=== PATIENT | male | born 1940 | race Caucasian/White ===

== ENCOUNTER 2025-02-20 10:44 | Inpatient (IN) ==
[2025-02-20] MEDS: MoRPHine SULFATE 4 MG/ML 1 ML CARP\\VIAL IV STA (12:06)
[2025-02-20] MEDS: KETOROLAC TROMETHAMINE 15 MG/ML VIAL IV STA (12:06)
[2025-02-20] MEDS: SODIUM CHLORIDE 0.9% 500 ML IV SCH (12:09)
[2025-02-20] MEDS: ACETAMINOPHEN 1,000 MG/100 ML VIAL IV STA (12:11)
[2025-02-20 12:35] LABS: Basophils # (auto) 0.03 K/uL (0.00-0.20); Basophils % (auto) 0.2 %; Eosinophils # (auto) 0.02 K/uL (0.00-0.50); Eosinophils % (auto) 0.1 %; Hematocrit (blood only) 44.4 % (42.0-52.0); Hemoglobin 13.4 g/dl (14.0-18.0); Immature Granulocytes # (auto) 0.06 K/uL (0.01-0.20); Immature Granulocytes % (auto) 0.3 %; Lymphocytes # (auto) 0.34 K/uL (1.20-3.40); Lymphocytes % (auto) 1.9 %; Mean Corpuscular Hemoglobin 26.9 pg (25.0-34.0); Mean Corpuscular Hgb Conc 30.2 g/dL (32.0-36.0); Mean Platelet Volume 11.6 fL (9.4-12.4); Monocytes # (auto) 1.43 K/uL (0.11-0.59); Monocytes % (auto) 8.2 %; Neutrophils # (auto) 15.62 K/uL (1.40-6.50); Neutrophils % (auto) 89.3 %; Platelet Count 332 K/uL (130-400); RDW Coefficient of Variation 14.7 % (11.5-14.5); RDW Standard Deviation 47.8 fL (36.4-46.3); Red Blood Count 4.99 M/uL (4.70-6.10)
[2025-02-20 12:55] LABS: Albumin Level 4.6 gm/dl (3.4-5.0); Bilirubin Direct 0.2 mg/dl (0-0.2); Bilirubin,Total 0.6 mg/dl (0.2-1.0); Calcium 9.9 mg/dl (8.6-10.3); Creatinine Clr Calc Pharmacy 31.3 ml/min; Magnesium 2.1 mg/dl (1.7-2.4); Potassium 4.6 mmol/L (3.5-5.1); Total Protein 7.3 gm/dl (6.0-8.3)
[2025-02-20 12:59] LABS: INR 1.1 (0.9-1.1); Partial Thromboplastin Ratio 1.1; Partial Thromboplastin Time 30 Seconds (21-31); Prothrombin Time 12.1 Seconds (9.0-12.0)
[2025-02-20 13:01] LABS: Troponin I High Sensitivity 26.9 pg/ml (0-20)
--- NOTE | 2025-02-20 13:05 | XRay Report ---
XR chest 1V portable CLINICAL HISTORY: Sepsis COMPARISON STUDY: None FINDINGS: There is mild cardiomegaly without pulmonary vascular congestion. No effusion, consolidatio n, or pneumothorax. IMPRESSION: No acute findings. ACT 112: Negative or not required by law. Electronically signed by: Rick Salas M.D. 02/20/2025 1:04 PM
[2025-02-20 13:08] LABS: Appearance Urine Clear (Clear); Bacteria Urine Automated None Seen (None Seen); Bilirubin Urine Negative (Negative); Blood Urine Negative (Negative); Cast Urine Automated 0-2 /lpf (0-2); Color Urine Yellow; Epithelial Cell Urine Auto 0-2 /hpf (0-2); Glucose Urine UA 2+ (Negative); Ketones Urine Trace (Negative); Leukocyte Esterase Urine Negative (Negative); Nitrite Urine Negative (Negative); Protein Urine Trace (Negative); RBC Urine Automated 0-2 /hpf (0-2); Specific Gravity Urine 1.022 (1.000-1.030); Urobilinogen Urine Negative (Negative); WBC Urine Automated 0-5 /hpf (0-5)
--- NOTE | 2025-02-20 13:09 | XRay Report ---
XR toe(s) RT min 2V CLINICAL HISTORY: R great toe pain COMPARISON: None FINDINGS: There are degenerative changes at the first MTP joint with moderate joint space narrowing and no erosions. There is mild soft tissue calcification medial to the joint. There is a small area o f cortical thinning at the mid medial plantar aspect of the first distal phalanx. No other fracture o r dislocation seen. No radiopaque foreign body. IMPRESSION: 1. Small area of cortical thinning at the first distal phalanx. Differential diagnosis includes osteo myelitis or small fracture. Suggest clinical correlation for trauma history. 2. Degenerative changes at the first MTP joint could represent early gout. ACT 112: Negative or not required by law. Electronically signed by: Rick Salas M.D. 02/20/2025 1:07 PM
[2025-02-20 13:22] LABS: Adenovirus PCR Not Detected (NotDetected); Bordetella parapertussis PCR Not Detected (NotDetected); Bordetella pertussis PCR Not Detected (NotDetected); Chlamydia pneumoniae PCR Not Detected (NotDetected); Coronavirus 229E PCR Not Detected (NotDetected); Coronavirus CoV-2 (COVID19)PCR Not Detected (NotDetected); Coronavirus HKU1 PCR Not Detected (NotDetected); Coronavirus NL63 PCR Not Detected (NotDetected); Coronavirus OC43PCR Not Detected (NotDetected); Human Metapneumovirus PCR Not Detected (NotDetected); Influenza A PCR Not Detected (NotDetected); Influenza B PCR Not Detected (NotDetected); Mycoplasma pneumoniae PCR Not Detected (NotDetected); Parainfluenza Virus 1 PCR Not Detected (NotDetected); Parainfluenza Virus 2 PCR Not Detected (NotDetected); Parainfluenza Virus 3 PCR Not Detected (NotDetected); Parainfluenza Virus 4 PCR Not Detected (NotDetected); Respiratory Syncytial VirusPCR Not Detected (NotDetected); Rhinovirus/Enterovirus PCR Not Detected (NotDetected)
--- NOTE | 2025-02-20 13:22 | CT Scan Report ---
CT lumbar spine wo con CLINICAL HISTORY: back pain fever COMPARISON STUDY: None FINDINGS: There is mild right convex lumbar scoliosis. There is severe diffuse degenerative disc dise ase and lower lumbar facet degeneration. No fracture or subluxation. No evidence of discitis/osteomye litis. There is moderate bilateral neural foraminal narrowing at L3-4 through L5-S1. There is mild ce ntral canal narrowing at L1-2, L2-3, L3-4, and L4-5. IMPRESSION: 1. No evidence of discitis/osteomyelitis seen at the lumbar spine. 2. No lumbar spine fractures seen. Diffuse degenerative changes as described. ACT 112: Negative or not required by law. Electronically signed by: Rick Salas M.D. 02/20/2025 1:20 PM
[2025-02-20] MEDS ORDERED: VANCOMYCIN CONSULT ACTIVE PRN ×2 (13:25→20:56)
[2025-02-20] MEDS: PIPERACILLIN/TAZOBACTAM 4.5 GM/100 ML BAG IV ONE (13:30)
--- NOTE | 2025-02-20 13:33 | CT Scan Report ---
ABDOMEN AND PELVIS CT WITHOUT CONTRAST CT DOSE: 898.94 mGy.cm HISTORY: back pain fever TECHNIQUE: Multiaxial CT images of the abdomen and pelvis were performed without contrast. A dose lo wering technique was utilized adhering to the principles of ALARA. COMPARISON STUDY: None FINDINGS: ABDOMEN: There is moderate splenomegaly measuring 16 cm. Portal vein is mildly prominent. This sugges ts portal hypertension. No ascites seen. There is a small amount of biliary gas. Otherwise the liver, spleen, and adrenal glands have an unremarkable non-IV contrasted appearance. There are likely prior operative changes of proximal pancreatic resection and anastomosis, not well seen without IV and ora l contrast. Pancreatic duct is mildly dilated, common after anastomosis. Otherwise the pancreas has a grossly unremarkable non-IV contrasted appearance. There are multiple bilateral renal cysts measurin g up to 8 cm at the right kidney. Kidneys show no hydronephrosis or calculi bilaterally. There are sc attered atherosclerotic calcifications. No abdominal aortic aneurysm. Pelvis: Prostate is enlarged. Garcia catheter is present and the urinary bladder is empty. There is mo derate retained stool. There is sigmoid diverticulosis. No acute diverticulitis. No bowel inflammatio n or obstruction. No free fluid, free air, or abscess. There are multiple small periaortic and pelvic lymph nodes with no enlarged adenopathy seen. Osseous structures: There is lumbar degenerative disc disease and there are moderate degenerative dorothy nges at the hips. No acute osseous findings. IMPRESSION: 1. No acute findings seen. 2. 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 This explains the small amount of bili vincent gas. 3. Splenomegaly and mild prominence of the pulmonary vein suggest portal hypertension. Cirrhotic morp hology of the liver is not present. No ascites. 4. Otherwise as described. ACT 112: Negative or not required by law. The above report was generated using voice recognition software. It may contain grammatical, syntax o r spelling errors. Electronically signed by: Rick Salas M.D. 02/20/2025 1:31 PM
[2025-02-20 14:06] LABS: HCO3 VBG 23 mmol/L; Oxygen Saturation VBG 74.9 %; PCO2 VBG 45 mmHg (38-50); PO2 VBG 42 mmHg; pH VBG 7.32 (7.36-7.41)
[2025-02-20] MEDS: VANCOMYCIN HCL 1,750 MG in SODIUM CHLORIDE 0.9% 500 ML IV ONE (14:30)
[2025-02-20] MEDS: GADOBUTROL 65ML VIAL IV ONE (15:50)
--- NOTE | 2025-02-20 16:32 | Magnetic Resonance Report ---
MRI foot without contrast History: Foot pain Comparison: None Technique: Multiphasic, multisequence MRI of the right foot performed without contrast Findings: There is an area of skin thickening and edema with mild swelling seen about the distal aspect of the great toe medially. Within the subjacent distal phalanx of the great toe, there is mild high signal intensity edema on the STIR sequences. There is some slight low signal intensity change along the medial margin of the distal aspect of the distal phalanx noted, however which remains significantly higher in signal when compared to that of skeletal muscle. No focal fluid collection identified within the soft tissues. Bone marrow signal in the remainder of the foot appears within normal limits. Impression: Edema and skin thickening, noted about the medial aspect of the distal great toe. Within the subjacent bone, there is edema noted as well, however without sufficiently low T1-weighted signal abnormality to suggest osteomyelitis, and would be more compatible with reactive osteitis. No focal fluid collections or abscess.. Electronically signed by Deshawn Singh 02-20-2025 4:16 PM
--- NOTE | 2025-02-20 16:52 | Emergency Department Note ---
History of Present Illness General Chief complaint: Back Injury/Pain Stated complaint: BACK PAIN Time Seen by Provider: 02/20/25 11:30 History of Present Illness Provider complaint: Back pain Maximum Pain Intensity: 10 84-year-old male presents emergency department for back pain. Patient reports he is having lower bilateral back pain that began last night while he was lying in bed. Patient reports he has a history of chronic back problems and sees doctors in [place] for them. Patient states he is visiting [place] to see his grandson graduate. He reports some difficulty urinating. Patient reports no fevers. No falls or traumas. Patient reports he took prednisone 20 mg last night for his back pain. He reports no abdominal pain. No chest pain or difficulty breathing. Patient is on Eliquis. Home Medications Medication Instructions Recorded Confirmed Type acetaminophen 300 mg-codeine 60 mg 1 tab PO Q12H PRN Pain 02/20/25 02/20/25 History tablet apixaban 5 mg tablet (Eliquis) 5 mg PO BID 02/20/25 02/20/25 History bumetanide 1 mg tablet 1 mg PO Q OTHER DAY 02/20/25 02/20/25 History cholecalciferol (vitamin D3) 25 25 mcg PO DAILY 02/20/25 02/20/25 History mcg (1,000 unit) capsule (Vitamin D3) empagliflozin 10 mg tablet 10 mg PO DAILY 02/20/25 02/20/25 History (Jardiance) finasteride 5 mg tablet 5 mg PO DAILY 02/20/25 02/20/25 History lorazepam 1 mg tablet 1 mg PO Q12H PRN ANXIETY/INSOMNIA 02/20/25 02/20/25 History losartan 100 mg tablet 100 mg PO DAILY 02/20/25 02/20/25 History pantoprazole 40 mg tablet,delayed 40 mg PO DAILYBB 02/20/25 02/20/25 History release propafenone 150 mg tablet 150 mg PO Q12H 02/20/25 02/20/25 History rosuvastatin 10 mg tablet 10 mg PO DAILY 02/20/25 02/20/25 History tamsulosin 0.4 mg capsule 0.8 mg PO HS 02/20/25 02/20/25 History Allergies Allergy/AdvReac Type Severity Reaction Status Date / Time oxycodone AdvReac Intermediate DELIRIUM Verified 02/20/25 16:40 Past Med/Surg History Problem List (Updated 02/20/25 @ 18:39 by Chon Contreras MD) Discitis of lumbar region (Acute) Medical History (Updated 02/20/25 @ 18:39 by Chon Contreras MD) Bladder cancer COPD (chronic obstructive pulmonary disease) Atrial fibrillation Gout Surgical History (Updated 02/20/25 @ 16:44 by Chon Contreras MD) H/O toe surgery Social History Smoking Status: Former smoker Preferred Language: Swedish Feels Safe at Home: Yes Physical Exam Vital Signs Vital Signs - 24 hr 02/20/25 10:47 02/20/25 12:00 02/20/25 12:03 Temperature 37.9 C H Temperature Source Oral Pulse Rate 88 84 Pulse Rate from SpO2 Sensor Respiratory Rate 22 22 Blood Pressure 166/65 H 146/65 H Blood Pressure Mean 98 87 Blood Pressure Position Semi-fowlers Pulse Oximetry 95 Oxygen Delivery Method Room Air Sepsis Recent Fever Within 48 Hours No Sepsis New/Unexplained Change in Mental Status No Sepsis Action Taken by Nursing No Action Required 02/20/25 12:10 02/20/25 12:30 02/20/25 13:00 Temperature Temperature Source Pulse Rate 87 86 95 H Pulse Rate from SpO2 Sensor Respiratory Rate 25 H 22 Blood Pressure Blood Pressure Mean Blood Pressure Position Pulse Oximetry Oxygen Delivery Method Sepsis Recent Fever Within 48 Hours Sepsis New/Unexplained Change in Mental Status Sepsis Action Taken by Nursing 02/20/25 13:33 02/20/25 13:45 02/20/25 14:00 Temperature 37.2 C Temperature Source Oral Pulse Rate 87 85 Pulse Rate from SpO2 Sensor Respiratory Rate 23 23 Blood Pressure 143/70 H Blood Pressure Mean 94 Blood Pressure Position Pulse Oximetry Oxygen Delivery Method Sepsis Recent Fever Within 48 Hours Sepsis New/Unexplained Change in Mental Status Sepsis Action Taken by Nursing 02/20/25 14:39 02/20/25 14:42 02/20/25 16:10 Temperature Temperature Source Pulse Rate 83 79 Pulse Rate from SpO2 Sensor 82 Respiratory Rate 23 Blood Pressure 107/48 L Blood Pressure Mean 74 Blood Pressure Position Pulse Oximetry 91 Oxygen Delivery Method Sepsis Recent Fever Within 48 Hours Sepsis New/Unexplained Change in Mental Status Sepsis Action Taken by Nursing 02/20/25 17:00 Temperature Temperature Source Pulse Rate 77 Pulse Rate from SpO2 Sensor Respiratory Rate 24 Blood Pressure 98/49 L Blood Pressure Mean 63 Blood Pressure Position Pulse Oximetry 94 Oxygen Delivery Method Room Air Sepsis Recent Fever Within 48 Hours Sepsis New/Unexplained Change in Mental Status Sepsis Action Taken by Nursing Physical Exam HENT: Exam performed. - Head: Normocephalic and atraumatic. EYES: Conjunctivae and EOM are normal. Pupils are equal, round, and reactive to light. Right eye exhibits no discharge. Left eye exhibits no discharge. No scleral icterus. NECK: Normal range of motion. Neck supple. No JVD present.No rigidity. No tracheal deviation and normal range of motion present. CV: Normal rate, regular rhythm, normal heart sounds and intact distal pulses. There is no peripheral edema. Palpable radial pulses bue. PULM/CHEST: Effort normal and breath sounds normal. No respiratory distress. No stridor. He has no wheezes. He has no rales. ABD: The abdomen is soft. There is no tenderness. There is no rebound, no guarding. MUSC/SKEL: No C or T-spine tenderness. Pain on palpation of L-spine lower right-sided lumbar and left-sided lumbar paraspinal muscles. Right great toe has a bloodsoaked and purulent bandage on it. Dressing was removed and the patient has sutures that appear clean and dry over the distal phalanx. Palpable DP and PT pulses bilateral lower extremities. NEURO: Motor and sensation grossly intact. Course Course 1130: The patient was evaluated in room C1. A complete history and physical exam was performed Cardiac monitoring: An order was placed for continuous cardiac monitoring. The monitor shows a rate of 90 with sinus rhythm interpreted by me Patient has temperature 37.9 in triage. Sepsis protocols will be initiated. 1300: Patient states he is unable to give a urine sample and urinate. Garcia catheter was placed on the patient. 1340: Patient's white blood cell count is elevated above 17. Lactic acid within normal limits. Procalcitonin is elevated. Patient's creatinine is 1.8 patient does state his creatinine baseline is around 1.8. CT of the abdomen pelvis did not show any acute findings. CT of the lumbar spine does not show any discitis or osteomyelitis. Will obtain MRI of the patient's lumbar spine given his continued back pain, difficulty urinating, white blood cell count and temperature of 37.9. X-ray of the foot shows possible osteomyelitis. In addition to get the MRI of the lumbar spine we will also get MRI of the foot to rule out osteomyelitis. Patient will be treated with broad-spectrum antibiotics for any sort of osteomyelitis giving appearance of his toe. 1755: Vital signs stable. MRI of the foot shows no evidence of osteomyelitis. MRI of this lumbar spine shows discitis. Discussed the case with [facility] hospitalist Dr. Luo who states she will evaluate patient for admission. Patient is agreeable to admission. 1836: Vital signs stable. Spoke with on-call spine surgery DrTarah. He agrees no need for emergent surgical intervention and continue IV antibiotics and plan is proceeded with admission to the hospitalist team. Administered Medications Discontinued Medications Gadobutrol (Gadobutrol 65ml Vial) 8.5 ml IV ONCE ONE Stop: 02/20/25 15:50 Last Admin: 02/20/25 15:50 Dose: 8.5 ml Documented By: PHILIPPE Sodium Chloride (Nss) 500 mls @ 999 mls/hr IV .Q31M GREGG Stop: 02/20/25 12:15 Last Infusion: 02/20/25 13:30 Dose: Infused Documented By: Admin: 02/20/25 12:09 Dose: 999 mls/hr Documented By: CEF Acetaminophen (Ofirmev) 1,000 mg in 100 mls @ 400 mls/hr IV NOW STA Stop: 02/20/25 11:50 Last Infusion: 02/20/25 12:44 Dose: Infused Documented By: Admin: 02/20/25 12:11 Dose: 400 mls/hr Documented By: CEF Piperacillin Sod/Tazobactam Sod (Zosyn) 4.5 gm in 100 mls @ 200 mls/hr IV NOW ONE; Protocol Stop: 02/20/25 13:53 Last Infusion: 02/20/25 14:30 Dose: Infused Documented By: Admin: 02/20/25 13:30 Dose: 200 mls/hr Documented By: CEF Vancomycin HCl 1,750 mg/ (Sodium Chloride) 535 mls @ 200 mls/hr IV NOW ONE Stop: 02/20/25 16:05 Last Infusion: 02/20/25 17:20 Dose: 200 mls/hr Documented By: Infusion: 02/20/25 14:47 Dose: 0 mls/hr Documented By: Admin: 02/20/25 14:30 Dose: 200 mls/hr Documented By: CEF Ketorolac Tromethamine (Ketorolac Tromethamine 15 Mg/Ml Vial) 15 mg IV NOW STA Stop: 02/20/25 11:37 Last Admin: 02/20/25 12:06 Dose: Not Given Documented By: CEF Morphine Sulfate (Morphine Sulfate 4 Mg/Ml 1 Ml Carp\Vial) 4 mg IV NOW STA Stop: 02/20/25 11:45 Last Admin: 02/20/25 12:06 Dose: 4 mg Documented By: CEF Medical Decision Making Laboratory Data Attestation: I reviewed the patient's lab results. 02/20/25 12:17 02/20/25 12:17 Lab Results 02/20/25 02/20/25 02/20/25 Range/Units 12:17 12:54 13:58 WBC 17.50 H (4.8-10.8) K/ul RBC 4.99 (4.70-6.10) M/uL Hgb 13.4 L (14.0-18.0) g/dl Hct 44.4 (42.0-52.0) % MCV 89.0 (80.0-100.0) fL MCH 26.9 (25.0-34.0) pg MCHC 30.2 L (32.0-36.0) g/dL RDW Std Deviation 47.8 H (36.4-46.3) fL RDW Coeff of Ivan 14.7 H (11.5-14.5) % Plt Count 332 (130-400) K/uL MPV 11.6 (9.4-12.4) fL Immature Gran % (Auto) 0.3 % Neut % (Auto) 89.3 % Lymph % (Auto) 1.9 % [place] % (Auto) 8.2 % Eos % (Auto) 0.1 % Baso % (Auto) 0.2 % Neut # (Auto) 15.62 H (1.40-6.50) K/uL Lymph # (Auto) 0.34 L (1.20-3.40) K/uL [place] # (Auto) 1.43 H (0.11-0.59) K/uL Eos # (Auto) 0.02 (0.00-0.50) K/uL Baso # (Auto) 0.03 (0.00-0.20) K/uL Immature Gran # (Auto) 0.06 (0.01-0.20) K/uL PT 12.1 H (9.0-12.0) Seconds INR 1.1 (0.9-1.1) APTT 30 (21-31) Seconds PTT Ratio 1.1 VBG pH 7.32 L (7.36-7.41) VBG pCO2 45 (38-50) mmHg VBG pO2 42 mmHg VBG HCO3 23 mmol/L VBG O2 Saturation 74.9 % VBG Base Excess -3.0 mEq/L Sodium 142 (136-145) mmol/L Potassium 4.6 (3.5-5.1) mmol/L Chloride 109 H (98-107) mmol/L Carbon Dioxide 29 (21-32) mmol/L Anion Gap 4 (3-11) BUN 46 H (6-23) mg/dl Creatinine 1.84 H (0.6-1.4) mg/dl Est Cr Clr Drug Dosing 31.3 ml/min eGFR 35.48 BUN/Creatinine Ratio 25.0 H (10-20) Glucose 110 H (70-99(Fasting)) mg/dl Lactate 1.5 (0.4-2.0) mmol/L Calcium 9.9 (8.6-10.3) mg/dl Magnesium 2.1 (1.7-2.4) mg/dl Total Bilirubin 0.6 (0.2-1.0) mg/dl Direct Bilirubin 0.2 (0-0.2) mg/dl AST 356 H (13-39) U/L ALT 172 H (7-52) U/L Alkaline Phosphatase 94 (34-104) U/L Troponin I High Sens 26.9 H (0-20) pg/ml Total Protein 7.3 (6.0-8.3) gm/dl Albumin 4.6 (3.4-5.0) gm/dl Procalcitonin 2.28 H (0-0.5) ng/ml Urine Color Yellow Urine Appearance Clear (Clear) Urine pH 5.0 (4.5-7.5) Ur Specific [place] 1.022 (1.000-1.030) Urine Protein Trace H (Negative) Urine Glucose (UA) 2+ H (Negative) Urine Ketones Trace H (Negative) Urine Blood Negative (Negative) Urine Nitrite Negative (Negative) Urine Bilirubin Negative (Negative) Urine Urobilinogen Negative (Negative) Ur Leukocyte Esterase Negative (Negative) Urine WBC (Auto) 0-5 (0-5) /hpf Urine RBC (Auto) 0-2 (0-2) /hpf U Hyaline Cast (Auto) 0-2 (0-2) /lpf U Epithel Cells (Auto) 0-2 (0-2) /hpf Urine Bacteria (Auto) None Seen (None Seen) Adenovirus (PCR) Not Detected (NotDetected) B. pertussis DNA (PCR) Not Detected (NotDetected) B.parapertussis DNA PCR Not Detected (NotDetected) C. pneumoniae DNA (PCR) Not Detected (NotDetected) Coronavirus OC43 (PCR) Not Detected (NotDetected) Coronavirus HKU1 (PCR) Not Detected (NotDetected) Coronavirus 229E (PCR) Not Detected (NotDetected) SARS-CoV-2 (PCR) Not Detected (NotDetected) Coronavirus NL63 (PCR) Not Detected (NotDetected) Human Metapneumovir PCR Not Detected (NotDetected) Influenza Type A (PCR) Not Detected (NotDetected) Influenza Type B (PCR) Not Detected (NotDetected) M. pneumoniae (PCR) Not Detected (NotDetected) Parainfluenza 1 (PCR) Not Detected (NotDetected) Parainfluenza 2 (PCR) Not Detected (NotDetected) Parainfluenza 3 (PCR) Not Detected (NotDetected) Parainfluenza 4 (PCR) Not Detected (NotDetected) RSV (PCR) Not Detected (NotDetected) Entero/Rhino (PCR) Not Detected (NotDetected) 02/20/25 Range/Units 14:18 WBC (4.8-10.8) K/ul RBC (4.70-6.10) M/uL Hgb (14.0-18.0) g/dl Hct (42.0-52.0) % MCV (80.0-100.0) fL MCH (25.0-34.0) pg MCHC (32.0-36.0) g/dL RDW Std Deviation (36.4-46.3) fL RDW Coeff of Ivan (11.5-14.5) % Plt Count (130-400) K/uL MPV (9.4-12.4) fL Immature Gran % (Auto) % Neut % (Auto) % Lymph % (Auto) % [place] % (Auto) % Eos % (Auto) % Baso % (Auto) % Neut # (Auto) (1.40-6.50) K/uL Lymph # (Auto) (1.20-3.40) K/uL [place] # (Auto) (0.11-0.59) K/uL Eos # (Auto) (0.00-0.50) K/uL Baso # (Auto) (0.00-0.20) K/uL Immature Gran # (Auto) (0.01-0.20) K/uL PT (9.0-12.0) Seconds INR (0.9-1.1) APTT (21-31) Seconds PTT Ratio VBG pH (7.36-7.41) VBG pCO2 (38-50) mmHg VBG pO2 mmHg VBG HCO3 mmol/L VBG O2 Saturation % VBG Base Excess mEq/L Sodium (136-145) mmol/L Potassium (3.5-5.1) mmol/L Chloride (98-107) mmol/L Carbon Dioxide (21-32) mmol/L Anion Gap (3-11) BUN (6-23) mg/dl Creatinine (0.6-1.4) mg/dl Est Cr Clr Drug Dosing ml/min eGFR BUN/Creatinine Ratio (10-20) Glucose (70-99(Fasting)) mg/dl Lactate (0.4-2.0) mmol/L Calcium (8.6-10.3) mg/dl Magnesium (1.7-2.4) mg/dl Total Bilirubin (0.2-1.0) mg/dl Direct Bilirubin (0-0.2) mg/dl AST (13-39) U/L ALT (7-52) U/L Alkaline Phosphatase (34-104) U/L Troponin I High Sens 23.3 H (0-20) pg/ml Total Protein (6.0-8.3) gm/dl Albumin (3.4-5.0) gm/dl Procalcitonin (0-0.5) ng/ml Urine Color Urine Appearance (Clear) Urine pH (4.5-7.5) Ur Specific [place] (1.000-1.030) Urine Protein (Negative) Urine Glucose (UA) (Negative) Urine Ketones (Negative) Urine Blood (Negative) Urine Nitrite (Negative) Urine Bilirubin (Negative) Urine Urobilinogen (Negative) Ur Leukocyte Esterase (Negative) Urine WBC (Auto) (0-5) /hpf Urine RBC (Auto) (0-2) /hpf U Hyaline Cast (Auto) (0-2) /lpf U Epithel Cells (Auto) (0-2) /hpf Urine Bacteria (Auto) (None Seen) Adenovirus (PCR) (NotDetected) B. pertussis DNA (PCR) (NotDetected) B.parapertussis DNA PCR (NotDetected) C. pneumoniae DNA (PCR) (NotDetected) Coronavirus OC43 (PCR) (NotDetected) Coronavirus HKU1 (PCR) (NotDetected) Coronavirus 229E (PCR) (NotDetected) SARS-CoV-2 (PCR) (NotDetected) Coronavirus NL63 (PCR) (NotDetected) Human Metapneumovir PCR (NotDetected) Influenza Type A (PCR) (NotDetected) Influenza Type B (PCR) (NotDetected) M. pneumoniae (PCR) (NotDetected) Parainfluenza 1 (PCR) (NotDetected) Parainfluenza 2 (PCR) (NotDetected) Parainfluenza 3 (PCR) (NotDetected) Parainfluenza 4 (PCR) (NotDetected) RSV (PCR) (NotDetected) Entero/Rhino (PCR) (NotDetected) Imaging Data Radiologist's Impression: Abdomen/Pelvis CT 02/20/25 11:[address] WITHOUT CONTRAST CT DOSE: 898.94 mGy.cm HISTORY: back pain fever TECHNIQUE: Multiaxial CT images of the abdomen and pelvis were performed without contrast. A dose lowering technique was utilized adhering to the principles of ALARA. COMPARISON STUDY: None FINDINGS: ABDOMEN: There is moderate splenomegaly measuring 16 cm. Portal vein is mildly prominent. This suggests portal hypertension. No ascites seen. There is a small amount of biliary gas. Otherwise the liver, spleen, and adrenal glands have an unremarkable non-IV contrasted appearance. There are likely prior operative changes of proximal pancreatic resection and anastomosis, not well seen without IV and oral contrast. Pancreatic duct is mildly dilated, common after anastomosis. Otherwise the pancreas has a grossly unremarkable non-IV contrasted appearance. There are multiple bilateral renal cysts measuring up to 8 cm at the right kidney. Kidneys show no hydronephrosis or calculi bilaterally. There are scattered atherosclerotic calcifications. No abdominal aortic aneurysm. Pelvis: Prostate is enlarged. Garcia catheter is present and the urinary bladder is empty. There is moderate retained stool. There is sigmoid diverticulosis. No acute diverticulitis. No bowel inflammation or obstruction. No free fluid, free air, or abscess. There are multiple small periaortic and pelvic lymph nodes with no enlarged adenopathy seen. Osseous structures: There is lumbar degenerative disc disease and there are moderate degenerative changes at the hips. No acute osseous findings. IMPRESSION: 1. No acute findings seen. 2. 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 This explains the small amount of biliary gas. 3. Splenomegaly and mild prominence of the pulmonary vein suggest portal hypertension. Cirrhotic morphology of the liver is not present. No ascites. 4. Otherwise as described. ACT 112: Negative or not required by law. The above report was generated using voice recognition software. It may contain grammatical, syntax or spelling errors. Electronically signed by: Rick Salas M.D. 02/20/2025 1:31 PM Chest X-Ray 02/20/25 11:36 XR chest 1V portable CLINICAL HISTORY: Sepsis COMPARISON STUDY: None FINDINGS: There is mild cardiomegaly without pulmonary vascular congestion. No effusion, consolidation, or pneumothorax. IMPRESSION: No acute findings. ACT 112: Negative or not required by law. Electronically signed by: Rick Salas M.D. 02/20/2025 1:[address] 02/20/25 11:36 CT lumbar spine wo con CLINICAL HISTORY: back pain fever COMPARISON STUDY: None FINDINGS: There is mild right convex lumbar scoliosis. There is severe diffuse degenerative disc disease and lower lumbar facet degeneration. No fracture or subluxation. No evidence of discitis/osteomyelitis. There is moderate bilateral neural foraminal narrowing at L3-4 through L5-S1. There is mild central canal narrowing at L1-2, L2-3, L3-4, and L4-5. IMPRESSION: 1. No evidence of discitis/osteomyelitis seen at the lumbar spine. 2. No lumbar spine fractures seen. Diffuse degenerative changes as described. ACT 112: Negative or not required by law. Electronically signed by: Rick Salas M.D. 02/20/2025 1:20 PM Toe X-Ray 02/20/25 11:43 XR toe(s) RT min 2V CLINICAL HISTORY: R great toe pain COMPARISON: None FINDINGS: There are degenerative changes at the first MTP joint with moderate joint space narrowing and no erosions. There is mild soft tissue calcification medial to the joint. There is a small area of cortical thinning at the mid medial plantar aspect of the first distal phalanx. No other fracture or dislocation seen. No radiopaque foreign body. IMPRESSION: 1. Small area of cortical thinning at the first distal phalanx. Differential diagnosis includes osteomyelitis or small fracture. Suggest clinical correlation for trauma history. 2. Degenerative changes at the first MTP joint could represent early gout. ACT 112: Negative or not required by law. Electronically signed by: Rick Salas M.D. 02/20/2025 1:07 PM Foot MRI 02/20/25 13:35 MRI foot without contrast History: Foot pain Comparison: None Technique: Multiphasic, multisequence MRI of the right foot performed without contrast Findings: There is an area of skin thickening and edema with mild swelling seen about the distal aspect of the great toe medially. Within the subjacent distal phalanx of the great toe, there is mild high signal intensity edema on the STIR sequences. There is some slight low signal intensity change along the medial margin of the distal aspect of the distal phalanx noted, however which remains significantly higher in signal when compared to that of skeletal muscle. No focal fluid collection identified within the soft tissues. Bone marrow signal in the remainder of the foot appears within normal limits. Impression: Edema and skin thickening, noted about the medial aspect of the distal great toe. Within the subjacent bone, there is edema noted as well, however without sufficiently low T1-weighted signal abnormality to suggest osteomyelitis, and would be more compatible with reactive osteitis. No focal fluid collections or abscess.. Electronically signed by Deshawn Singh 02-20-2025 4:16 PM Lumbar Spine MRI 02/20/25 13:35 EXAM: MR lumbar spine wo/w con CLINICAL HISTORY: fever, back pain, urinary retention TECHNIQUE: An MRI of the lumbar spine was performed without and with the administration of intravenous contrast. . 8.5CC GADAVIST intravenous contras was administered. Sequences obtained include sagittal T1-weighted, T2-weighted, STIR (Short Tau Inversion Recovery), and axial T2-weighted, post-contrast T1 sequences. COMPARISON: No previous studies are available for comparison. FINDINGS: Vertebral Alignment: Normal alignment of the lumbar spine without evidence of fracture or malalignment. Scoliosis is observed, with apex to the right side , a mottling appearance of the lumbar spine suggesting osteoporosis. Vertebral Bodies and Intervertebral Discs: Spondylodegenerative changes noted with decreased disc heights and bright signal on T2WI associated with marginal osteophytosis and multilevel mixed modic changes. Normal vertebral body height, no fracture identified. L4-5 and L5-S1 discs marked loss of their heights, yet show intra-substance high signal on T2WI/STIR with post-contrast enhancement with no intraspinal or paravertebral localized fluid collections, suggesting discitis [id number] analysis: T11-12: An asymmetrical disc osteophyte bulges the largest component, measuring about 4 mm. There is no spinal canal stenosis. No neural foraminal stenosis.Mild ligamentum flavum hypertrophy and facet joint arthropathy. T12-L1: asymmetrical disc osteophyt bulge, the largest component measuring about 4.4 mm. No spinal canal stenosis. No neural foraminal stenosis.Mild ligamentum flavum hypertrophy and facet joint arthropathy. L1-L2: asymmetrical disc osteophyte bulge, the largest component is right paracentral/foriminal, measuring about 5.5 mm. Mild to moderate spinal canal stenosis. Mild to moderate right and mild left neural foraminal stenosis.mild ligamentum flavum hypertrophy and facet joint arthropathy. L2-L3: asymmetrical disc osteophyt bulge, the largest component is right foramina measuring about 5.5 mm. Mild spinal canal stenosis. moderate to marked neural foraminal stenosis.Mild ligamentum flavum hypertrophy and facet joint arthropathy. L3-L4: asymmetrical disc osteophyte bulge, the largest component measures about 4 mm. Mild spinal canal stenosis. moderate to marked neural foraminal stenosis. ligamentum flavum hypertrophy and facet joint arthropathy. L4-L5: asymmetrical disc osteophyt bulge, the largest component is osteophytosis at both foramina, measuring about 4 mm. No spinal canal stenosis. moderate to marked neural foraminal stenosis, no ligamentum flavum hypertrophy, but there is facet joint arthropathy. L5-S1: asymmetrical disc osteophyt bulge, the largest component is osteophytosis at both foramina, measuring about 4.5 mm. No spinal canal stenosis. moderate to marked neural foraminal stenosis, no ligamentum flavum hypertrophy, but there is facet joint arthropathy.. Spinal Cord : Conus medullaris terminates at the L1 level without abnormality. The lower thoracic spinal cord, conus medullaris, and cauda equina nerve roots are unremarkable. Soft Tissues: Bilateral variable-sized large renal cysts; otherwise, Paraspinal soft tissues appear normal without evidence of abnormal signal intensity or mass lesions. IMPRESSION: 1. Scoliotic changes. 2. 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 L4-5 and L5-S1 show features of discitis Electronically signed by Antelmo Sheridan 02-20-2025 5:23 PM ECG Data Attestation: I personally reviewed and interpreted this ECG as follows: Rate (beats per minute): 87 Rhythm: + normal sinus ECG Intervals/blocks: + Normal QRS, + Normal AK and + Normal QT-c ECG ST segments: + Normal ST segments MDM Narrative 1130: The patient was evaluated in room C1. A complete history and physical exam was performed Cardiac monitoring: An order was placed for continuous cardiac monitoring. The monitor shows a rate of 90 with sinus rhythm interpreted by me Patient has temperature 37.9 in triage. Sepsis protocols will be initiated. 1300: Patient states he is unable to give a urine sample and urinate. Garcia catheter was placed on the patient. 1340: Patient's white blood cell count is elevated above 17. Lactic acid within normal limits. Procalcitonin is elevated. Patient's creatinine is 1.8 patient does state his creatinine baseline is around 1.8. CT of the abdomen pelvis did not show any acute findings. CT of the lumbar spine does not show any discitis or osteomyelitis. Will obtain MRI of the patient's lumbar spine given his continued back pain, difficulty urinating, white blood cell count and temperature of 37.9. X-ray of the foot shows possible osteomyelitis. In addition to get the MRI of the lumbar spine we will also get MRI of the foot to rule out osteomyelitis. Patient will be treated with broad-spectrum antibiotics for any sort of osteomyelitis giving appearance of his toe. 1755: Vital signs stable. MRI of the foot shows no evidence of osteomyelitis. MRI of this lumbar spine shows discitis. Discussed the case with [facility] hospitalist Dr. Luo who states she will evaluate patient for admission. Patient is agreeable to admission. 183: Vital signs stable. Spoke with on-call spine surgery DrTarah. He agrees no need for emergent surgical intervention and continue IV antibiotics and plan is proceeded with admission to the hospitalist team. Impression & Plan Discitis of lumbar region Discharge Plan Visit Data Chief Complaint: Back Injury/Pain Stated Complaint: BACK PAIN ED Provider: Chon Contreras Discharge Problem: Discitis of lumbar region Patient Disposition: Admitted As Inpatient Condition: Fair Forms Stand Alone Forms: My [facility] Prescriptions Prescriptions: No Action propafenone 150 mg tablet 150 mg PO Q12H tamsulosin 0.4 mg capsule 0.8 mg PO HS pantoprazole 40 mg tablet,delayed release (DR/EC) 40 mg PO DAILYBB bumetanide 1 mg tablet 1 mg PO Q OTHER DAY acetaminophen-codeine 300-60 mg tablet 1 tab PO Q12H PRN (Reason: Pain) lorazepam 1 mg tablet 1 mg PO Q12H PRN (Reason: ANXIETY/INSOMNIA) losartan 100 mg tablet 100 mg PO DAILY finasteride 5 mg tablet 5 mg PO DAILY cholecalciferol (vitamin D3) [Vitamin D3] 25 mcg (1,000 unit) Capsule 25 mcg PO DAILY rosuvastatin 10 mg tablet 10 mg PO DAILY Eliquis 5 mg tablet 5 mg PO BID Jardiance 10 mg tablet 10 mg PO DAILY Referrals Referrals: RANDI PATRICK [Other]
--- NOTE | 2025-02-20 17:23 | Magnetic Resonance Report ---
EXAM: MR lumbar spine wo/w con CLINICAL HISTORY: fever, back pain, urinary retention TECHNIQUE: An MRI of the lumbar spine was performed without and with the administration of intravenous contrast. . 8.5CC GADAVIST intravenous contras was administered. Sequences obtained include sagittal T1-weighted, T2-weighted, STIR (Short Tau Inversion Recovery), and axial T2-weighted, post-contrast T1 sequences. COMPARISON: No previous studies are available for comparison. FINDINGS: Vertebral Alignment: Normal alignment of the lumbar spine without evidence of fracture or malalignment. Scoliosis is observed, with apex to the right side , a mottling appearance of the lumbar spine suggesting osteoporosis. Vertebral Bodies and Intervertebral Discs: Spondylodegenerative changes noted with decreased disc heights and bright signal on T2WI associated with marginal osteophytosis and multilevel mixed modic changes. Normal vertebral body height, no fracture identified. L4-5 and L5-S1 discs marked loss of their heights, yet show intra-substance high signal on T2WI/STIR with post-contrast enhancement with no intraspinal or paravertebral localized fluid collections, suggesting discitis [id number] analysis: T11-12: An asymmetrical disc osteophyte bulges the largest component, measuring about 4 mm. There is no spinal canal stenosis. No neural foraminal stenosis.Mild ligamentum flavum hypertrophy and facet joint arthropathy. T12-L1: asymmetrical disc osteophyt bulge, the largest component measuring about 4.4 mm. No spinal canal stenosis. No neural foraminal stenosis.Mild ligamentum flavum hypertrophy and facet joint arthropathy. L1-L2: asymmetrical disc osteophyte bulge, the largest component is right paracentral/foriminal, measuring about 5.5 mm. Mild to moderate spinal canal stenosis. Mild to moderate right and mild left neural foraminal stenosis.mild ligamentum flavum hypertrophy and facet joint arthropathy. L2-L3: asymmetrical disc osteophyt bulge, the largest component is right foramina measuring about 5.5 mm. Mild spinal canal stenosis. moderate to marked neural foraminal stenosis.Mild ligamentum flavum hypertrophy and facet joint arthropathy. L3-L4: asymmetrical disc osteophyte bulge, the largest component measures about 4 mm. Mild spinal canal stenosis. moderate to marked neural foraminal stenosis. ligamentum flavum hypertrophy and facet joint arthropathy. L4-L5: asymmetrical disc osteophyt bulge, the largest component is osteophytosis at both foramina, measuring about 4 mm. No spinal canal stenosis. moderate to marked neural foraminal stenosis, no ligamentum flavum hypertrophy, but there is facet joint arthropathy. L5-S1: asymmetrical disc osteophyt bulge, the largest component is osteophytosis at both foramina, measuring about 4.5 mm. No spinal canal stenosis. moderate to marked neural foraminal stenosis, no ligamentum flavum hypertrophy, but there is facet joint arthropathy.. Spinal Cord : Conus medullaris terminates at the L1 level without abnormality. The lower thoracic spinal cord, conus medullaris, and cauda equina nerve roots are unremarkable. Soft Tissues: Bilateral variable-sized large renal cysts; otherwise, Paraspinal soft tissues appear normal without evidence of abnormal signal intensity or mass lesions. IMPRESSION: 1. Scoliotic changes. 2. 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 L4-5 and L5-S1 show features of discitis Electronically signed by Antelmo Sheridan 02-20-2025 5:23 PM
--- NOTE | 2025-02-20 19:14 | History & Physical Report ---
Date of Service February 20, 2025 Assessment & Plan (1) Discitis of lumbar region: (2) BPH (benign prostatic hyperplasia): (3) Bladder cancer: (4) COPD (chronic obstructive pulmonary disease): (5) Congestive heart failure: Plan 84-year-old male, from out of town, visiting for his son's graduation, presented with low back pain. Was found to have fever, leukocytosis and MRI shows discitis. 1. Discitis Patient was started on vancomycin and Zosyn. Continue Blood cultures ordered Monitor leukocytosis Monitor vital signs Hemodynamically stable 2. Atrial fibrillation Continue Eliquis Not on any rate controlling agents Rate controlled currently 3. Urinary retention Patient has a history of BPH Garcia catheter in place Continue Flomax and Proscar Voiding trial soon to remove catheter Patient has a history of bladder cancer and has had surgeries. Currently CT abdomen was negative 4. Recent toe surgery MRI of the toe did not show any osteomyelitis. It showed osteitis from recent surgery 5. COPD Patient says that he chews tobacco and used to smoke in the past He uses inhalers No hypoxia or acute exacerbation at this time 6. Hyperlipidemia Statin can be resumed 7. Congestive heart failure Patient has a history of congestive heart failure and takes Jardiance He does not take Bumex any longer Appears euvolemic at this time 8. CKD stage III Patient says that his creatinine is at baseline Full code DVT prophylaxis: Continue Eliquis History of Present Illness Chief Complaint: Low back pain Primary Care Provider: RANDI PATRICK This is an 84-year-old male with a history of atrial fibrillation on Eliquis, COPD, history of bladder cancer, recent toe surgery less than 2 weeks ago, BPH, hyperlipidemia, GERD, congestive heart failure, CKD stage III, lives in [place], came to [place] for her son's graduation, presented with low back pain. The patient stated that he has had issues with low back pain off-and-on but it got much worse early this morning. He took a dose of 20 mg of prednisone. He went to the graduation and his pain gradually got worse to the point that he called the ambulance to bring him to the emergency room. While in the ER, he was having difficulty urinating and now has a Garcia catheter in place. In the ER, he was noted to have an elevated temperature of 37.9 and an elevated white count of 17,000. He had several imaging done including right toe x-ray, lumbar spine MRI, foot MRI, lumbar spine CT, chest x-ray. Osteomyelitis of the foot was ruled out but the MRI of the back showed discitis. He has been started on vancomycin and Zosyn. The patient tells me that he does not have any pain in his back at this time. Allergies Allergy/AdvReac Type Severity Reaction Status Date / Time oxycodone AdvReac Intermediate DELIRIUM Verified 02/20/25 16:40 Home Medications Medication Instructions Recorded Confirmed Type acetaminophen 300 mg-codeine 60 mg 1 tab PO Q12H PRN Pain 02/20/25 02/20/25 History tablet apixaban 5 mg tablet (Eliquis) 5 mg PO BID 02/20/25 02/20/25 History bumetanide 1 mg tablet 1 mg PO Q OTHER DAY 02/20/25 02/20/25 History cholecalciferol (vitamin D3) 25 25 mcg PO DAILY 02/20/25 02/20/25 History mcg (1,000 unit) capsule (Vitamin D3) empagliflozin 10 mg tablet 10 mg PO DAILY 02/20/25 02/20/25 History (Jardiance) finasteride 5 mg tablet 5 mg PO DAILY 02/20/25 02/20/25 History lorazepam 1 mg tablet 1 mg PO Q12H PRN ANXIETY/INSOMNIA 02/20/25 02/20/25 History losartan 100 mg tablet 100 mg PO DAILY 02/20/25 02/20/25 History pantoprazole 40 mg tablet,delayed 40 mg PO DAILYBB 02/20/25 02/20/25 History release propafenone 150 mg tablet 150 mg PO Q12H 02/20/25 02/20/25 History rosuvastatin 10 mg tablet 10 mg PO DAILY 02/20/25 02/20/25 History tamsulosin 0.4 mg capsule 0.8 mg PO HS 02/20/25 02/20/25 History Past Med/Surg History Problem List (Updated 02/20/25 @ 19:08 by Corey Bautista MD) Congestive heart failure BPH (benign prostatic hyperplasia) Discitis of lumbar region (Acute) Medical History Bladder cancer COPD (chronic obstructive pulmonary disease) Atrial fibrillation Gout Surgical History H/O toe surgery Social History Smoking Status: Former smoker Preferred Language: [place] Feels Safe at Home: Yes Review of Systems Review of Systems: All systems reviewed & are unremarkable except as noted in Subjective Physical Exam Physical Exam: General appearance: Awake, conversant, able to answer questions appropriately. AOx3. Dry mucous membranes Pupils: Equally reactive to light and accommodation Neck: No masses, no thyromegaly Respiration: Clear to auscultation bilaterally. Normal effort Cardiovascular: S1-S2/regular rate and rhythm. No murmur, rubs or gallop. No edema. Abdomen: Soft, nontender, nondistended. No hepatosplenomegaly Musculoskeletal: No clubbing, no cyanosis, normal range of motion. No point tenderness in the back. Postsurgical changes in the right great toe, incision site appears to be healing. Skin: No rashes, no nodules Neuro exam: Cranial nerves intact, sensation grossly intact Psychiatric: Patient has good judgment and insight. AOx3. Mood and affect appear normal Lymphatics: No cervical or axillary lymphadenopathy noted Results & Data Results & Data Vital Signs (Past 12 Hours) Vital Signs Temp Pulse Resp BP Pulse Ox O2 Del Method 02/20/25 18:00 61 16 99/65 L 94 Room Air 02/20/25 17:00 77 24 98/49 L 94 Room Air 02/20/25 16:10 79 02/20/25 14:42 107/48 L 02/20/25 14:39 83 23 91 02/20/25 14:00 85 23 143/70 H 02/20/25 13:45 87 23 02/20/25 13:33 37.2 C 02/20/25 13:00 95 H 22 02/20/25 12:30 86 25 H 02/20/25 12:10 87 02/20/25 12:03 84 22 02/20/25 12:00 146/65 H 02/20/25 10:47 37.9 C H 88 22 166/65 H 95 Room Air Laboratory Results Abnormal lab results 02/20/25 02/20/25 02/20/25 Range/Units 12:17 12:54 13:58 WBC 17.50 H (4.8-10.8) K/ul Hgb 13.4 L (14.0-18.0) g/dl MCHC 30.2 L (32.0-36.0) g/dL RDW Std Deviation 47.8 H (36.4-46.3) fL RDW Coeff of Ivan 14.7 H (11.5-14.5) % Neut # (Auto) 15.62 H (1.40-6.50) K/uL Lymph # (Auto) 0.34 L (1.20-3.40) K/uL [place] # (Auto) 1.43 H (0.11-0.59) K/uL PT 12.1 H (9.0-12.0) Seconds VBG pH 7.32 L (7.36-7.41) Chloride 109 H (98-107) mmol/L BUN 46 H (6-23) mg/dl Creatinine 1.84 H (0.6-1.4) mg/dl BUN/Creatinine Ratio 25.0 H (10-20) Glucose 110 H (70-99(Fasting)) mg/dl AST 356 H (13-39) U/L ALT 172 H (7-52) U/L Troponin I High Sens 26.9 H (0-20) pg/ml Procalcitonin 2.28 H (0-0.5) ng/ml Urine Protein Trace H (Negative) Urine Glucose (UA) 2+ H (Negative) Urine Ketones Trace H (Negative) 02/20/25 Range/Units 14:18 WBC (4.8-10.8) K/ul Hgb (14.0-18.0) g/dl MCHC (32.0-36.0) g/dL RDW Std Deviation (36.4-46.3) fL RDW Coeff of Ivan (11.5-14.5) % Neut # (Auto) (1.40-6.50) K/uL Lymph # (Auto) (1.20-3.40) K/uL [place] # (Auto) (0.11-0.59) K/uL PT (9.0-12.0) Seconds VBG pH (7.36-7.41) Chloride (98-107) mmol/L BUN (6-23) mg/dl Creatinine (0.6-1.4) mg/dl BUN/Creatinine Ratio (10-20) Glucose (70-99(Fasting)) mg/dl AST (13-39) U/L ALT (7-52) U/L Troponin I High Sens 23.3 H (0-20) pg/ml Procalcitonin (0-0.5) ng/ml Urine Protein (Negative) Urine Glucose (UA) (Negative) Urine Ketones (Negative) Diagnostic Findings Abdomen/Pelvis CT 02/20/25 11:[address] WITHOUT CONTRAST CT DOSE: 898.94 mGy.cm HISTORY: back pain fever TECHNIQUE: Multiaxial CT images of the abdomen and pelvis were performed without contrast. A dose lowering technique was utilized adhering to the principles of ALARA. COMPARISON STUDY: None FINDINGS: ABDOMEN: There is moderate splenomegaly measuring 16 cm. Portal vein is mildly prominent. This suggests portal hypertension. No ascites seen. There is a small amount of biliary gas. Otherwise the liver, spleen, and adrenal glands have an unremarkable non-IV contrasted appearance. There are likely prior operative changes of proximal pancreatic resection and anastomosis, not well seen without IV and oral contrast. Pancreatic duct is mildly dilated, common after anastomosis. Otherwise the pancreas has a grossly unremarkable non-IV contrasted appearance. There are multiple bilateral renal cysts measuring up to 8 cm at the right kidney. Kidneys show no hydronephrosis or calculi bilaterally. There are scattered atherosclerotic calcifications. No abdominal aortic aneurysm. Pelvis: Prostate is enlarged. Garcia catheter is present and the urinary bladder is empty. There is moderate retained stool. There is sigmoid diverticulosis. No acute diverticulitis. No bowel inflammation or obstruction. No free fluid, free air, or abscess. There are multiple small periaortic and pelvic lymph nodes with no enlarged adenopathy seen. Osseous structures: There is lumbar degenerative disc disease and there are moderate degenerative changes at the hips. No acute osseous findings. IMPRESSION: 1. No acute findings seen. 2. 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 This explains the small amount of biliary gas. 3. Splenomegaly and mild prominence of the pulmonary vein suggest portal hypertension. Cirrhotic morphology of the liver is not present. No ascites. 4. Otherwise as described. ACT 112: Negative or not required by law. The above report was generated using voice recognition software. It may contain grammatical, syntax or spelling errors. Electronically signed by: Rick Salas M.D. 02/20/2025 1:31 PM Chest X-Ray 02/20/25 11:36 XR chest 1V portable CLINICAL HISTORY: Sepsis COMPARISON STUDY: None FINDINGS: There is mild cardiomegaly without pulmonary vascular congestion. No effusion, consolidation, or pneumothorax. IMPRESSION: No acute findings. ACT 112: Negative or not required by law. Electronically signed by: Rick Salas M.D. 02/20/2025 1:[address] 02/20/25 11:36 CT lumbar spine wo con CLINICAL HISTORY: back pain fever COMPARISON STUDY: None FINDINGS: There is mild right convex lumbar scoliosis. There is severe diffuse degenerative disc disease and lower lumbar facet degeneration. No fracture or subluxation. No evidence of discitis/osteomyelitis. There is moderate bilateral neural foraminal narrowing at L3-4 through L5-S1. There is mild central canal narrowing at L1-2, L2-3, L3-4, and L4-5. IMPRESSION: 1. No evidence of discitis/osteomyelitis seen at the lumbar spine. 2. No lumbar spine fractures seen. Diffuse degenerative changes as described. ACT 112: Negative or not required by law. Electronically signed by: Rick Salas M.D. 02/20/2025 1:20 PM Toe X-Ray 02/20/25 11:43 XR toe(s) RT min 2V CLINICAL HISTORY: R great toe pain COMPARISON: None FINDINGS: There are degenerative changes at the first MTP joint with moderate joint space narrowing and no erosions. There is mild soft tissue calcification medial to the joint. There is a small area of cortical thinning at the mid medial plantar aspect of the first distal phalanx. No other fracture or dislocation seen. No radiopaque foreign body. IMPRESSION: 1. Small area of cortical thinning at the first distal phalanx. Differential diagnosis includes osteomyelitis or small fracture. Suggest clinical correlation for trauma history. 2. Degenerative changes at the first MTP joint could represent early gout. ACT 112: Negative or not required by law. Electronically signed by: Rick Salas M.D. 02/20/2025 1:07 PM Foot MRI 02/20/25 13:35 MRI foot without contrast History: Foot pain Comparison: None Technique: Multiphasic, multisequence MRI of the right foot performed without contrast Findings: There is an area of skin thickening and edema with mild swelling seen about the distal aspect of the great toe medially. Within the subjacent distal phalanx of the great toe, there is mild high signal intensity edema on the STIR sequences. There is some slight low signal intensity change along the medial margin of the distal aspect of the distal phalanx noted, however which remains significantly higher in signal when compared to that of skeletal muscle. No focal fluid collection identified within the soft tissues. Bone marrow signal in the remainder of the foot appears within normal limits. Impression: Edema and skin thickening, noted about the medial aspect of the distal great toe. Within the subjacent bone, there is edema noted as well, however without sufficiently low T1-weighted signal abnormality to suggest osteomyelitis, and would be more compatible with reactive osteitis. No focal fluid collections or abscess.. Electronically signed by Deshawn Singh 02-20-2025 4:16 PM Lumbar Spine MRI 02/20/25 13:35 EXAM: MR lumbar spine wo/w con CLINICAL HISTORY: fever, back pain, urinary retention TECHNIQUE: An MRI of the lumbar spine was performed without and with the administration of intravenous contrast. . 8.5CC GADAVIST intravenous contras was administered. Sequences obtained include sagittal T1-weighted, T2-weighted, STIR (Short Tau Inversion Recovery), and axial T2-weighted, post-contrast T1 sequences. COMPARISON: No previous studies are available for comparison. FINDINGS: Vertebral Alignment: Normal alignment of the lumbar spine without evidence of fracture or malalignment. Scoliosis is observed, with apex to the right side , a mottling appearance of the lumbar spine suggesting osteoporosis. Vertebral Bodies and Intervertebral Discs: Spondylodegenerative changes noted with decreased disc heights and bright signal on T2WI associated with marginal osteophytosis and multilevel mixed modic changes. Normal vertebral body height, no fracture identified. L4-5 and L5-S1 discs marked loss of their heights, yet show intra-substance high signal on T2WI/STIR with post-contrast enhancement with no intraspinal or paravertebral localized fluid collections, suggesting discitis [id number] analysis: T11-12: An asymmetrical disc osteophyte bulges the largest component, measuring about 4 mm. There is no spinal canal stenosis. No neural foraminal stenosis.Mild ligamentum flavum hypertrophy and facet joint arthropathy. T12-L1: asymmetrical disc osteophyt bulge, the largest component measuring about 4.4 mm. No spinal canal stenosis. No neural foraminal stenosis.Mild ligamentum flavum hypertrophy and facet joint arthropathy. L1-L2: asymmetrical disc osteophyte bulge, the largest component is right paracentral/foriminal, measuring about 5.5 mm. Mild to moderate spinal canal stenosis. Mild to moderate right and mild left neural foraminal stenosis.mild ligamentum flavum hypertrophy and facet joint arthropathy. L2-L3: asymmetrical disc osteophyt bulge, the largest component is right foramina measuring about 5.5 mm. Mild spinal canal stenosis. moderate to marked neural foraminal stenosis.Mild ligamentum flavum hypertrophy and facet joint arthropathy. L3-L4: asymmetrical disc osteophyte bulge, the largest component measures about 4 mm. Mild spinal canal stenosis. moderate to marked neural foraminal stenosis. ligamentum flavum hypertrophy and facet joint arthropathy. L4-L5: asymmetrical disc osteophyt bulge, the largest component is osteophytosis at both foramina, measuring about 4 mm. No spinal canal stenosis. moderate to marked neural foraminal stenosis, no ligamentum flavum hypertrophy, but there is facet joint arthropathy. L5-S1: asymmetrical disc osteophyt bulge, the largest component is osteophytosis at both foramina, measuring about 4.5 mm. No spinal canal stenosis. moderate to marked neural foraminal stenosis, no ligamentum flavum hypertrophy, but there is facet joint arthropathy.. Spinal Cord : Conus medullaris terminates at the L1 level without abnormality. The lower thoracic spinal cord, conus medullaris, and cauda equina nerve roots are unremarkable. Soft Tissues: Bilateral variable-sized large renal cysts; otherwise, Paraspinal soft tissues appear normal without evidence of abnormal signal intensity or mass lesions. IMPRESSION: 1. Scoliotic changes. 2. 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 L4-5 and L5-S1 show features of discitis Electronically signed by Antelmo Sheridan 02-20-2025 5:23 PM PG Care Time/CCT Total # of Minutes Spent Total Time Spent with Patient: Total time spent is greater than 50% in coordination of care (as documented) at patient's floor/unit and/or counseling patient: Coding Level of Care Code 49348 INT INP/OBS CARE Diagnoses Discitis of lumbar region M46.46 BPH (benign prostatic hyperplasia) N40.0 Bladder cancer C67.9 COPD (chronic obstructive pulmonary disease) J44.9 Congestive heart failure I50.9
[2025-02-20] MEDS ORDERED: POLYETHYLENE (MIRALAX) 17 GM PACK PO PRN (20:56)
[2025-02-20] MEDS ORDERED: MELATONIN 3 MG TAB PO PRN (20:56)
[2025-02-20] MEDS ORDERED: ONDANSETRON INJ 2 MG/ML 2 ML VIAL IV PRN (20:56)
[2025-02-20] MEDS: TAMSULOSIN HCL 0.4 MG CAP PO SCH (21:58)
[2025-02-20] MEDS: PROPAFENONE HCL 150 MG TABLET PO SCH (21:58)
[2025-02-20] MEDS: APIXABAN 5 MG TABLET PO SCH (21:59)
[2025-02-20] MEDS: LORazepam 1 MG TAB PO SCH (22:17)
[2025-02-20] MEDS: VANCOMYCIN HCL 1,000 MG in SODIUM CHLORIDE 0.9% 250 ML IV SCH (22:17)
[2025-02-20] MEDS: ACETAMINOPHEN W/CODEINE #3 1 TAB PO PRN (22:58)
[2025-02-20 23:38] LABS: A calco-baum cmplx NotReported Not Detected (NotDetected); Bact fragilis Not Reported Not Detected (NotDetected); Blood Culture Id Panel See PCR Comment (NotDetected); C auris Not Reported Not Detected (NotDetected); CTX-M Resistant Gene Not Detected (NotDetected); Calbicans Not Reported Not Detected (NotDetected); Candida glabrata Not Reported Not Detected (NotDetected); Candida krusei Not Reported Not Detected (NotDetected); Cneoformans/gatti Not Reported Not Detected (NotDetected); Cparapsilosis Not Reported Not Detected (NotDetected); Ctropicalis Not Reported Not Detected (NotDetected); E cloacae compx Not Reported Not Detected (NotDetected); Efaecalis Not Reported Not Detected (NotDetected); Efaecium Not Reported Not Detected (NotDetected); Enterobacterales DETECTED (NotDetected); Enterobacterales Not Reported DETECTED (NotDetected); Escherichia coli Not Reported DETECTED (NotDetected); H influenzae Not Reported Not Detected (NotDetected); IMP Resistant Gene Not Detected (NotDetected); K aerogenes Not Reported Not Detected (NotDetected); KPC Resistant Gene Not Detected (NotDetected); Koxytoca Not Reported Not Detected (NotDetected); Kpneumoniae grp Not Reported Not Detected (NotDetected); Lmonocyt Not Reported Not Detected (NotDetected); N meningitidis Not Reported Not Detected (NotDetected); NDM Resistant Gene Not Detected (NotDetected); OXA 48 Like Resistant Gene Not Detected (NotDetected); P aeruginosa Not Reported Not Detected (NotDetected); Proteus spp Not Reported Not Detected (NotDetected); Salmonella spp Not Reported Not Detected (NotDetected); Staph lugdunensis Not Reported Not Detected (NotDetected); Staph spp. Not Reported Not Detected (NotDetected); Staphaureus Not Reported Not Detected (NotDetected); Staphepi Not Reported Not Detected (NotDetected); Stenmaltophilia Not Reported Not Detected (NotDetected); Strep agal(GrpB) Not Reported Not Detected (NotDetected); Strep pneum Not Reported Not Detected (NotDetected); Strep pyog (GrpA) Not Reported Not Detected (NotDetected); Strep spp Not Reported Not Detected (NotDetected); VIM Resistant Gene Not Detected (NotDetected); mcr-1 Colistin Resistant Gene Not Detected (NotDetected)
[2025-02-20] MEDS: PIPERACILLIN/TAZOBACTAM 4.5 GM/100 ML BAG IV SCH (23:39)
[2025-02-21] MEDS: ACETAMINOPHEN 325 MG TAB PO PRN (05:17)
[2025-02-21] MEDS: PANTOprazole 40 MG TAB PO SCH (05:19)
[2025-02-21 06:57] LABS: Basophils # (auto) 0.05 K/uL (0.00-0.20); Basophils % (auto) 0.3 %; Eosinophils # (auto) 0.01 K/uL (0.00-0.50); Eosinophils % (auto) 0.1 %; Hematocrit (blood only) 35.4 % (42.0-52.0); Hemoglobin 10.8 g/dl (14.0-18.0); Immature Granulocytes # (auto) 0.12 K/uL (0.01-0.20); Immature Granulocytes % (auto) 0.6 %; Lymphocytes # (auto) 1.48 K/uL (1.20-3.40); Lymphocytes % (auto) 7.4 %; Mean Corpuscular Hemoglobin 26.9 pg (25.0-34.0); Mean Corpuscular Hgb Conc 30.5 g/dL (32.0-36.0); Mean Corpuscular Volume 88.3 fL (80.0-100.0); Monocytes # (auto) 1.84 K/uL (0.11-0.59); Monocytes % (auto) 9.2 %; Neutrophils # (auto) 16.45 K/uL (1.40-6.50); Neutrophils % (auto) 82.4 %; Platelet Count 265 K/uL (130-400); RDW Coefficient of Variation 14.8 % (11.5-14.5); RDW Standard Deviation 47.8 fL (36.4-46.3); Red Blood Count 4.01 M/uL (4.70-6.10); White Blood Count 19.95 K/ul (4.8-10.8)
[2025-02-21] MEDS: FINASTERIDE 5 MG TAB PO SCH (08:05)
[2025-02-21] MEDS: ROSUVASTATIN CALCIUM 10 MG TAB PO SCH (08:05)
--- NOTE | 2025-02-21 11:11 | Infectious Disease Consult ---
Date of Consultation February 21, 2025 Assessment & Plan (1) Discitis of lumbar region: (2) E coli bacteremia: Plan 84yo M, retired physician, with h/o L4-L5 discectomy (no hardware) x 2 over 10yrs ago, right TKA 2021, afib on eliquis, bladder cancer dx 1999 with recurrence s/p TURBT in 04/2024, s/p BCG completed 06/2024, gets cystoscopies for follow up (last 01/2025), IPMN s/p robotic Whipple 2017, recent right first toe ingrown nail nailbed removal and excision of distal phalanx spur on 02/10/25 at [facility], known aortic insufficiency, CHF, COPD, CKD III who presented on 02/20 with acute onset of lower back pain and chills x 1 day. Has chronic bl SI joint pain and gets injections every 6-8mo (last 1yr ago). Took pred 20mg x 1 prior to arrival. In the ER, he had difficulty urinating and brumfield was placed. On admission, he was afebrile, vss. Initial WBC 17.5, Cr 1.84, AST 356, ALT 172. P CT 2.28. UA negative. CTAP w/o con with portal HTN, no cirrhosis. CXR negative. R foot MRI with edema and skin thickening, noted about the medial aspect of the distal great toe; within the subjacent bone, there is edema noted as well, however without sufficiently low T1-weighted signal abnormality to suggest osteomyelitis, and would be more compatible with reactive osteitis; no focal fluid collections or abscess. MRI L spine with L4-5 and L5-S1 w features of discitis. He was started on vanc/zosyn. BCx returned with E coli. ID consulted 02/21. He has E coli bacteremia in setting of MRI findings of discitis. ?whether it may have originated from his right toe given recent surgery (per [facility] records, there werent any concerns for an infection at that time). He also gets injections for SI joint pain, but the last one was quite some time ago. No reported GI or symptoms aside from known urinary retention. Will adjust abx for E coli, pending sensi. He will need a long course of abx, but since he says he doesnt have hardware then will not need suppression. Given his AR and that patient would like to leave, would go ahead and get TTE now rather than waiting to see if bacteremia is persistent. # L4-5 and L5-S1 discitis # E coli bacteremia # H/o L5 discectomy (no hardware) # CKD III (Cr 1.9 in 01/2025) # H/o aortic insufficiency # H/o right TKA - would get TTE - repeat blood cx - ortho spine evaluation - Sherie stopped vancomycin - continue zosyn for now, de-escalate pending BCx sensi - he will need 6 weeks of IV abx for discitis - no PICC until blood cx are neg x 48hrs Will continue to follow. If questions or concerns, contact via [employer] or Infectious Disease Call Center . Clarisse Ruiz MD [facility], Division of Infectious Diseases Consultation Information Consultation was provided via telemedicine using two-way real-time interactive telecommunication between the patient and the telemedicine provider. For the duration of the visit, the provider was performing the assessment from a different facility than the patient. This includesuse of bluetooth stethoscope forauscultationperformed by the telepresenter that the telemedicine provider can hear if described in the physical exam. [employer] contact information: Please call [facility] Call Center [phone]. (Phone Number For Physician Use Only) After establishing a telemedicine visit, patient was: Patient was verified with two unique identifiers, Patient/authorized rep acknowledged consent and understanding and Gave permission to continue telehealth session Time Spent with Patient: Initial => 75 min History of Present Illness Reason for Consultation: Gram neg bacteremia, susp discitis Attending Physician: Dhiraj De Los Santos MD History of Present Illness 84yo M, retired physician, with h/o L4-L5 discectomy (no hardware) x 2 over 10yrs ago, right TKA 2021, afib on eliquis, bladder cancer dx 1999 with recurrence s/p TURBT in 04/2024, s/p BCG completed 06/2024, gets cystoscopies for follow up (last 01/2025), IPMN s/p robotic Whipple 2017, recent right first toe ingrown nail nailbed removal and excision of distal phalanx spur on 02/10/25 at [facility], known aortic insufficiency, CHF, COPD, CKD III who presented on 02/20 with back pain. He lives in [place], was attending his sons graduation in [employer] when he developed low back pain and chills. He took a dose of prednisone 20mg, but pain got worse and ended up calling an ambulance to bring him to the ED. In the ER, he had difficulty urinating and brumfield was placed. On admission, he was afebrile, vss. Initial WBC 17.5, Cr 1.84, AST 356, ALT 172. PCT 2.28. UA negative. CTAP w/o con with portal HTN, no cirrhosis. CXR negative. R foot MRI with edema and skin thickening, noted about the medial aspect of the distal great toe; within the subjacent bone, there is edema noted as well, however without sufficiently low T1-weighted signal abnormality to suggest osteomyelitis, and would be more compatible with reactive osteitis; no focal fluid collections or abscess. MRI L spine with L4-5 and L5-S1 w features of discitis. He was started on vanc/zosyn. BCx returned with E coli. ID consulted 02/21. On evaluation, he says that he has chronic bilateral SI joint pains for the past 8-10 years and often gets injections for the pain, usually every 6-8 months. Last injection was 1yr ago. He has had some of his baseline back pain when it got significantly worse around Sat night/Sun morning along with shaking chills. Denies any issues with his right toe since his surgery. No dysuria, vomiting, diarrhea, other rashes. He says he usually has a 400cc urine residual but doesnt have a brumfield/self-cath at home. Allergies Allergy/AdvReac Type Severity Reaction Status Date / Time oxycodone AdvReac Intermediate DELIRIUM Verified 02/20/25 16:40 Home Medications Medication Instructions Recorded Confirmed Type acetaminophen 300 mg-codeine 60 mg 1 tab PO Q12H PRN Pain 02/20/25 02/20/25 History tablet apixaban 5 mg tablet (Eliquis) 5 mg PO BID 02/20/25 02/20/25 History bumetanide 1 mg tablet 1 mg PO Q OTHER DAY 02/20/25 02/20/25 History cholecalciferol (vitamin D3) 25 25 mcg PO DAILY 02/20/25 02/20/25 History mcg (1,000 unit) capsule (Vitamin D3) empagliflozin 10 mg tablet 10 mg PO DAILY 02/20/25 02/20/25 History (Jardiance) finasteride 5 mg tablet 5 mg PO DAILY 02/20/25 02/20/25 History lorazepam 1 mg tablet 1 mg PO Q12H PRN ANXIETY/INSOMNIA 02/20/25 02/20/25 History losartan 100 mg tablet 100 mg PO DAILY 02/20/25 02/20/25 History pantoprazole 40 mg tablet,delayed 40 mg PO DAILYBB 02/20/25 02/20/25 History release propafenone 150 mg tablet 150 mg PO Q12H 02/20/25 02/20/25 History rosuvastatin 10 mg tablet 10 mg PO DAILY 02/20/25 02/20/25 History tamsulosin 0.4 mg capsule 0.8 mg PO HS 02/20/25 02/20/25 History Patient History Medical History Bladder cancer COPD (chronic obstructive pulmonary disease) Atrial fibrillation Gout Surgical History H/O toe surgery Social History Smoking Status: Former smoker Tobacco Type: Cigarettes Smoking End Date: 2017; Hx Alcohol Use: No Hx Substance Use: No Preferred Language: German Communication Ability: Effective Director Council On Aging Required: No Beliefs That Will Affect Care: None Current Living Situation: Spouse Current Living Situation Comment: at home with Other Information That Helps Us Care for You: No Feels Safe at Home: Yes Safety Concerns: Feels Safe At This Time Assistive Devices: Cane, Glasses and Wheelchair Assistive Devices Comment: wheelchair for long distances Review of System 10-point review of systems reviewed and are negative except for as above. Physical Exam Physical Exam: General: Awake, alert, no acute distress HEENT: NC/AT, EOMI, mmm Neck: supple Lungs: CTA bl, no w/c/r Heart: nl S1/S2, +murmur Abdomen: soft, NT/ND Back: no spinal tenderness Ext: no LE edema, right foot with postop changes Skin: no rash Neuro: moving all extremities Results & Data Vital Signs (Past 12 Hours) Vital Signs Temp Pulse Resp BP Pulse Ox O2 Del Method 02/21/25 07:32 36.4 C L 51 L 16 121/61 93 Room Air Laboratory Results Labs reviewed. Diagnostic Findings Imaging reviewed.
--- NOTE | 2025-02-21 11:18 | Orthopedic Consultation ---
Date of Service February 21, 2025 Assessment & Plan (1) Discitis of lumbar region: Patient feeling better relative to low back pain. L4-5 and L5-S1 discitis is noted on lumbar spine MRI, specifically STIR sequence imaging. He does have significant elevation of WBC count. However, per Dr. Montalvo, no surgical in tervention is recommended at this time. This can be treated medically. We did discuss having him fit with an LSO brace, but the patient says that he would not wear the brace. He is on some IV antibiotics, and plans to stay for another day or so to continue receiving those. Patient says that he really just wants to get out of the hospital and return home, as he lives in [place] and was just visiting to see his grandson graduate from [facility]. Patient does see a radiological health specialist in [place], and so he is recommended to continue to follow-up there. From an orthopedic standpoint, he is safe for discharge once medically stable. He can continue to take recommendations for antibiotics from infectious disease, as he does need to have this discitis treated. Patient seen and examined, I discussed with him that he is had chronic low back pain for a number of years but the MRI findings highly suggest a discitis at L4- 5 and L5-S1. He has some osteophyte formation which I think is stabilizing the levels reducing the amount of pain that he is having from these levels. The patient has agreed to undergo antibiotic treatment, would like to be discharged in 2 days, he will need infectious disease and spine follow-up in [place]. History of Present Illness Reason for Consultation: low back pain Requesting Physician: . Attending Physician: Dhiraj De Los Santos MD ED provider note 02/20/2025: 84-year-old male presents emergency department for back pain. Patient reports he is having lower bilateral back pain that began last night while he was lying in bed. Patient reports he has a history of chronic back problems and sees doctors in [place] for them. Patient states he is visiting [place] to see his grandson graduate. He reports some difficulty urinating. Patient reports no fevers. No falls or traumas. Patient reports he took prednisone 20 mg last night for his back pain. He reports no abdominal pain. No chest pain or difficulty breathing. Patient is on Eliquis. 1130: The patient was evaluated in room C1. A complete history and physical exam was performed Cardiac monitoring: An order was placed for continuous cardiac monitoring. The monitor shows a rate of 90 with sinus rhythm interpreted by me Patient has temperature 37.9 in triage. Sepsis protocols will be initiated. 1300: Patient states he is unable to give a urine sample and urinate. Garcia catheter was placed on the patient. 1340: Patient's white blood cell count is elevated above 17. Lactic acid within normal limits. Procalcitonin is elevated. Patient's creatinine is 1.8 patient does state his creatinine baseline is around 1.8. CT of the abdomen pelvis did not show any acute findings. CT of the lumbar spine does not show any discitis or osteomyelitis. Will obtain MRI of the patient's lumbar spine given his continued back pain, difficulty urinating, white blood cell count and temperature of 37.9. X-ray of the foot shows possible osteomyelitis. In addition to get the MRI of the lumbar spine we will also get MRI of the foot to rule out osteomyelitis. Patient will be treated with broad-spectrum antibiotics for any sort of osteomyelitis giving appearance of his toe. 1755: Vital signs stable. MRI of the foot shows no evidence of osteomyelitis. MRI of this lumbar spine shows discitis. Discussed the case with [facility] hospitalist Dr. Luo who states she will evaluate patient for admission. Patient is agreeable to admission. 1836: Vital signs stable. Spoke with on-call spine surgery . He agrees no need for emergent surgical intervention and continue IV antibiotics and plan is proceeded with admission to the hospitalist team. Hospitalist note 02/20/2025: This is an 84-year-old male with a history of atrial fibrillation on Eliquis, COPD, history of bladder cancer, recent toe surgery less than 2 weeks ago, BPH, hyperlipidemia, GERD, congestive heart failure, CKD stage III, lives in [place], came to [place] for her son's graduation, presented with low back pain. The patient stated that he has had issues with low back pain off-and-on but it got much worse early this morning. He took a dose of 20 mg of prednisone. He went to the graduation and his pain gradually got worse to the point that he called the ambulance to bring him to the emergency room. While in the ER, he was having difficulty urinating and now has a Garcia catheter in place. In the ER, he was noted to have an elevated temperature of 37.9 and an elevated white count of 17,000. He had several imaging done including right toe x-ray, lumbar spine MRI, foot MRI, lumbar spine CT, chest x-ray. Osteomyelitis of the foot was ruled out but the MRI of the back showed discitis. He has been started on vancomycin and Zosyn. --------- Today, the patient notes that he has been feeling better, and that his low back pain is quite a bit improved. 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 He does have a history of an L4-5 discectomy x 2, which was done greater than 10 years ago. He did note that when he was sitting yesterday during his grandsons graduation, he started to note some low back pain and chills developing. He does follow with a radiological health specialist in [place], and so he has some prednisone to take as needed, which he did do, but the pain continued to worsen, which caused him to call an ambulance to transport him to the ED. Patient did undergo a lumbar spine MRI, which was reported to show features of discitis at L4-5 and L5-S1, and so he was started onto IV vancomycin and Zosyn. Infectious disease did report that his blood cultures showed E. coli. Patient has thought for many years that his SI joints were the cause of his pain, and he has gotten injections every 6 to 8 months or so for the past 8 to 10 years. However, he has not had an injection for about a year now. Allergies Allergy/AdvReac Type Severity Reaction Status Date / Time oxycodone AdvReac Intermediate DELIRIUM Verified 02/20/25 16:40 Home Medications Medication Instructions Recorded Confirmed Type acetaminophen 300 mg-codeine 60 mg 1 tab PO Q12H PRN Pain 02/20/25 02/20/25 History tablet apixaban 5 mg tablet (Eliquis) 5 mg PO BID 02/20/25 02/20/25 History bumetanide 1 mg tablet 1 mg PO Q OTHER DAY 02/20/25 02/20/25 History cholecalciferol (vitamin D3) 25 25 mcg PO DAILY 02/20/25 02/20/25 History mcg (1,000 unit) capsule (Vitamin D3) empagliflozin 10 mg tablet 10 mg PO DAILY 02/20/25 02/20/25 History (Jardiance) finasteride 5 mg tablet 5 mg PO DAILY 02/20/25 02/20/25 History lorazepam 1 mg tablet 1 mg PO Q12H PRN ANXIETY/INSOMNIA 02/20/25 02/20/25 History losartan 100 mg tablet 100 mg PO DAILY 02/20/25 02/20/25 History pantoprazole 40 mg tablet,delayed 40 mg PO DAILYBB 02/20/25 02/20/25 History release propafenone 150 mg tablet 150 mg PO Q12H 02/20/25 02/20/25 History rosuvastatin 10 mg tablet 10 mg PO DAILY 02/20/25 02/20/25 History tamsulosin 0.4 mg capsule 0.8 mg PO HS 02/20/25 02/20/25 History Past Med/Surg History Problem List (Updated 02/21/25 @ 14:31 by Dhiraj De Los Santos MD) Urine retention E coli bacteremia Congestive heart failure BPH (benign prostatic hyperplasia) Discitis of lumbar region (Acute) Medical History Bladder cancer COPD (chronic obstructive pulmonary disease) Atrial fibrillation Gout Surgical History H/O toe surgery Social History Smoking Status: Former smoker Tobacco Type: Cigarettes Smoking End Date: 2017; Hx Alcohol Use: No Hx Substance Use: No Preferred Language: Thai Communication Ability: Effective Email Operations Manager Required: No Beliefs That Will Affect Care: None Current Living Situation: Spouse Current Living Situation Comment: at home with Other Information That Helps Us Care for You: No Feels Safe at Home: Yes Safety Concerns: Feels Safe At This Time Assistive Devices: Cane Assistive Devices Comment: wheelchair for long distances Review of Systems All systems reviewed & are unremarkable except as noted in HPI & below. Physical Exam GENERAL: Speech and cognition is intact. Mood and affect is appropriate. Does not appear in acute distress. HEAD: Normocephalic; atraumatic. NECK: Trachea is midline. CHEST: Regular chest respiration and excursion. EXTREMITIES: No TTP. Distal sensation and pulses intact bilaterally. BACK: Diminished ROM. No midline, SI joint, or facet joint tenderness. No lumbosacral tenderness. No paraspinal, quadratus lumborum, piriformis, or gluteal tenderness or spasm.Inspection/palpation demonstrates loss of normal lumbar lordotic curvature. NEURO: CN II-XII grossly intact with no focal deficits noted. Awake, alert, and oriented x 3. Sensation intact to light touch of the bilateral L2-S1 dermatomes. Patellar Reflex R 2+L 2+ Achilles Reflex R 2+L 2+ Negative clonus bilaterally SKIN: No lesions, erythema, or rashes noted. LOWER EXTREMITIES: Negative straight leg raise bilaterally. R Hip flexion 5/5; hip extension 5/5; knee extension 5/5; knee flexion 5/5; ankle dorsiflexion 5/5; ankle plantar flexion 5/5; EHL 5/5 L Hip flexion 5/5; hip extension 5/5; knee extension 5/5; knee flexion 5/5; ankle dorsiflexion 5/5; ankle plantar flexion 5/5; EHL 5/5 Results & Data Results & Data Laboratory Results . Laboratory Results - last 48 hr 02/20/25 02/20/25 02/20/25 12:17 12:54 13:58 WBC 17.50 H RBC 4.99 Hgb 13.4 L Hct 44.4 MCV 89.0 MCH 26.9 MCHC 30.2 L RDW Std Deviation 47.8 H RDW Coeff of Ivan 14.7 H Plt Count 332 MPV 11.6 Immature Gran % (Auto) 0.3 Neut % (Auto) 89.3 Lymph % (Auto) 1.9 [place] % (Auto) 8.2 Eos % (Auto) 0.1 Baso % (Auto) 0.2 Neut # (Auto) 15.62 H Lymph # (Auto) 0.34 L [place] # (Auto) 1.43 H Eos # (Auto) 0.02 Baso # (Auto) 0.03 Immature Gran # (Auto) 0.06 ESR PT 12.1 H INR 1.1 APTT 30 PTT Ratio 1.1 VBG pH 7.32 L VBG pCO2 45 VBG pO2 42 VBG HCO3 23 VBG O2 Saturation 74.9 VBG Base Excess -3.0 Sodium 142 Potassium 4.6 Chloride 109 H Carbon Dioxide 29 Anion Gap 4 BUN 46 H Creatinine 1.84 H Est Cr Clr Drug Dosing 31.3 eGFR 35.48 BUN/Creatinine Ratio 25.0 H Glucose 110 H Lactate 1.5 Calcium 9.9 Magnesium 2.1 Total Bilirubin 0.6 Direct Bilirubin 0.2 AST 356 H ALT 172 H Alkaline Phosphatase 94 Troponin I High Sens 26.9 H C-Reactive Protein Total Protein 7.3 Albumin 4.6 Procalcitonin 2.28 H Urine Color Yellow Urine Appearance Clear Urine pH 5.0 Ur Specific [place] 1.022 Urine Protein Trace H Urine Glucose (UA) 2+ H Urine Ketones Trace H Urine Blood Negative Urine Nitrite Negative Urine Bilirubin Negative Urine Urobilinogen Negative Ur Leukocyte Esterase Negative Urine WBC (Auto) 0-5 Urine RBC (Auto) 0-2 U Hyaline Cast (Auto) 0-2 U Epithel Cells (Auto) 0-2 Urine Bacteria (Auto) None Seen Adenovirus (PCR) Not Detected B. pertussis DNA (PCR) Not Detected B.parapertussis DNA PCR Not Detected C. pneumoniae DNA (PCR) Not Detected Coronavirus OC43 (PCR) Not Detected Coronavirus HKU1 (PCR) Not Detected Coronavirus 229E (PCR) Not Detected SARS-CoV-2 (PCR) Not Detected Coronavirus NL63 (PCR) Not Detected Enterobacterales (PCR) DETECTED A E. coli (PCR) DETECTED A Human Metapneumovir PCR Not Detected Influenza Type A (PCR) Not Detected Influenza Type B (PCR) Not Detected M. pneumoniae (PCR) Not Detected Parainfluenza 1 (PCR) Not Detected Parainfluenza 2 (PCR) Not Detected Parainfluenza 3 (PCR) Not Detected Parainfluenza 4 (PCR) Not Detected RSV (PCR) Not Detected Entero/Rhino (PCR) Not Detected mcr-1 Colistin Res Gene PCR Not Detected blaIMP Car res Gene PCR Not Detected KPC-Carbap Res Gene PCR Not Detected blaNDM Car Res Gene PCR Not Detected OXA-48 Carbapenem Resis Gene (PCR) Not Detected blaVIM Car Res Gene PCR Not Detected CTX-M Gene Resistance (PCR) Not Detected Bld Cult ID Panel PCR See PCR Comment 02/20/25 02/21/25 02/21/25 14:18 06:32 11:33 WBC 19.95 H RBC 4.01 L Hgb 10.8 L Hct 35.4 L MCV 88.3 MCH 26.9 MCHC 30.5 L RDW Std Deviation 47.8 H RDW Coeff of Ivan 14.8 H Plt Count 265 MPV 12.0 Immature Gran % (Auto) 0.6 Neut % (Auto) 82.4 Lymph % (Auto) 7.4 [place] % (Auto) 9.2 Eos % (Auto) 0.1 Baso % (Auto) 0.3 Neut # (Auto) 16.45 H Lymph # (Auto) 1.48 [place] # (Auto) 1.84 H Eos # (Auto) 0.01 Baso # (Auto) 0.05 Immature Gran # (Auto) 0.12 ESR 14 PT INR APTT PTT Ratio VBG pH VBG pCO2 VBG pO2 VBG HCO3 VBG O2 Saturation VBG Base Excess Sodium Potassium Chloride Carbon Dioxide Anion Gap BUN Creatinine Est Cr Clr Drug Dosing eGFR BUN/Creatinine Ratio Glucose Lactate Calcium Magnesium Total Bilirubin Direct Bilirubin AST ALT Alkaline Phosphatase Troponin I High Sens 23.3 H C-Reactive Protein 10.03 H Total Protein Albumin Procalcitonin Urine Color Urine Appearance Urine pH Ur Specific [place] Urine Protein Urine Glucose (UA) Urine Ketones Urine Blood Urine Nitrite Urine Bilirubin Urine Urobilinogen Ur Leukocyte Esterase Urine WBC (Auto) Urine RBC (Auto) U Hyaline Cast (Auto) U Epithel Cells (Auto) Urine Bacteria (Auto) Adenovirus (PCR) B. pertussis DNA (PCR) B.parapertussis DNA PCR C. pneumoniae DNA (PCR) Coronavirus OC43 (PCR) Coronavirus HKU1 (PCR) Coronavirus 229E (PCR) SARS-CoV-2 (PCR) Coronavirus NL63 (PCR) Enterobacterales (PCR) E. coli (PCR) Human Metapneumovir PCR Influenza Type A (PCR) Influenza Type B (PCR) M. pneumoniae (PCR) Parainfluenza 1 (PCR) Parainfluenza 2 (PCR) Parainfluenza 3 (PCR) Parainfluenza 4 (PCR) RSV (PCR) Entero/Rhino (PCR) mcr-1 Colistin Res Gene PCR blaIMP Car res Gene PCR KPC-Carbap Res Gene PCR blaNDM Car Res Gene PCR OXA-48 Carbapenem Resis Gene (PCR) blaVIM Car Res Gene PCR CTX-M Gene Resistance (PCR) Bld Cult ID Panel PCR Diagnostic Findings ]]]]]]]]]]]]]]]]]] Lumbar Spine CT 02/20/25 11:36 CT lumbar spine wo con CLINICAL HISTORY: back pain fever COMPARISON STUDY: None FINDINGS: There is mild right convex lumbar scoliosis. There is severe diffuse degenerative disc disease and lower lumbar facet degeneration. No fracture or subluxation. No evidence of discitis/osteomyelitis. There is moderate bilateral neural foraminal narrowing at L3-4 through L5-S1. There is mild central canal narrowing at L1-2, L2-3, L3-4, and L4-5. IMPRESSION: 1. No evidence of discitis/osteomyelitis seen at the lumbar spine. 2. No lumbar spine fractures seen. Diffuse degenerative changes as described. ACT 112: Negative or not required by law. Electronically signed by: Rick Salas M.D. 02/20/2025 1:20 PM Lumbar Spine MRI 02/20/25 13:35 EXAM: MR lumbar spine wo/w con CLINICAL HISTORY: fever, back pain, urinary retention TECHNIQUE: An MRI of the lumbar spine was performed without and with the administration of intravenous contrast. . 8.5CC GADAVIST intravenous contras was administered. Sequences obtained include sagittal T1-weighted, T2-weighted, STIR (Short Tau Inversion Recovery), and axial T2-weighted, post-contrast T1 sequences. COMPARISON: No previous studies are available for comparison. FINDINGS: Vertebral Alignment: Normal alignment of the lumbar spine without evidence of fracture or malalignment. Scoliosis is observed, with apex to the right side , a mottling appearance of the lumbar spine suggesting osteoporosis. Vertebral Bodies and Intervertebral Discs: Spondylodegenerative changes noted with decreased disc heights and bright signal on T2WI associated with marginal osteophytosis and multilevel mixed modic changes. Normal vertebral body height, no fracture identified. L4-5 and L5-S1 discs marked loss of their heights, yet show intra-substance high signal on T2WI/STIR with post-contrast enhancement with no intraspinal or paravertebral localized fluid collections, suggesting discitis [id number] analysis: T11-12: An asymmetrical disc osteophyte bulges the largest component, measuring about 4 mm. There is no spinal canal stenosis. No neural foraminal stenosis.Mild ligamentum flavum hypertrophy and facet joint arthropathy. T12-L1: asymmetrical disc osteophyt bulge, the largest component measuring about 4.4 mm. No spinal canal stenosis. No neural foraminal stenosis.Mild ligamentum flavum hypertrophy and facet joint arthropathy. L1-L2: asymmetrical disc osteophyte bulge, the largest component is right paracentral/foriminal, measuring about 5.5 mm. Mild to moderate spinal canal stenosis. Mild to moderate right and mild left neural foraminal stenosis.mild ligamentum flavum hypertrophy and facet joint arthropathy. L2-L3: asymmetrical disc osteophyt bulge, the largest component is right foramina measuring about 5.5 mm. Mild spinal canal stenosis. moderate to marked neural foraminal stenosis.Mild ligamentum flavum hypertrophy and facet joint arthropathy. L3-L4: asymmetrical disc osteophyte bulge, the largest component measures about 4 mm. Mild spinal canal stenosis. moderate to marked neural foraminal stenosis. ligamentum flavum hypertrophy and facet joint arthropathy. L4-L5: asymmetrical disc osteophyt bulge, the largest component is osteophytosis at both foramina, measuring about 4 mm. No spinal canal stenosis. moderate to marked neural foraminal stenosis, no ligamentum flavum hypertrophy, but there is facet joint arthropathy. L5-S1: asymmetrical disc osteophyt bulge, the largest component is osteophytosis at both foramina, measuring about 4.5 mm. No spinal canal stenosis. moderate to marked neural foraminal stenosis, no ligamentum flavum hypertrophy, but there is facet joint arthropathy.. Spinal Cord : Conus medullaris terminates at the L1 level without abnormality. The lower thoracic spinal cord, conus medullaris, and cauda equina nerve roots are unremarkable. Soft Tissues: Bilateral variable-sized large renal cysts; otherwise, Paraspinal soft tissues appear normal without evidence of abnormal signal intensity or mass lesions. IMPRESSION: 1. Scoliotic changes. 2. 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 L4-5 and L5-S1 show features of discitis Electronically signed by Antelmo Sheridan 02-20-2025 5:23 PM PG Care Time/CCT Total # of Minutes Spent Total Time Spent with Patient: Total time spent is greater than 50% in coordination of care (as documented) at patient's floor/unit and/or counseling patient: [place] [address] IN/OBS CONSULT LVL 5,80M Patient Type New Medical Decision Making Moderate Complexity Diagnoses Discitis of lumbar region M46.46
--- NOTE | 2025-02-21 12:33 | Electrocardiogram Report ---
Test Reason : Blood Pressure : */* mmHG Vent. Rate : 87 BPM Atrial Rate : 87 BPM P-R Int : 186 ms QRS Dur : 96 ms QT Int : 340 ms P-R-T Axes : * -56 78 degrees QTcB Int : 409 ms Normal sinus rhythm Left axis deviation Inferior infarct , age undetermined Possible Anterior infarct , age undetermined Abnormal ECG No previous ECGs available Confirmed by Matthew Ross ([id number]) on 02/21/2025 12:32:29 PM Referred By: Confirmed By: Matthew Ross
--- NOTE | 2025-02-21 12:41 | XCELERA ---
[id number]
--- NOTE | 2025-02-21 14:26 | Hospitalist Progress Note ---
Date of Service February 21, 2025 Assessment & Plan (1) Discitis of lumbar region: Plan: L4-5, L5-S1 discitis seen on MRI scanning. Appears to be E. coli based on blood culture results. Infectious disease consultation and recommendations appreciated. Currently on Zosyn, day 2. He will require intravenous antibiotics for 6 weeks. PICC line will be placed 48 hours after last negative blood culture. (2) E coli bacteremia: Plan: Continue Zosyn for now, day 2. Infectious disease recommendations appreciated. 511 blood cultures are positive. 512 blood cultures from today are pending. TTE negative for signs of vegetations (3) BPH (benign prostatic hyperplasia): Plan: Acute urinary retention when in the ER. Garcia catheter was placed on February 20. Garcia catheter will be removed tomorrow, February 22, for trial of voiding (4) Bladder cancer: Plan: By history. No current intervention required (5) COPD (chronic obstructive pulmonary disease): Plan: Stable. Continue current medical management Plan Continue IV antibiotics. PICC line will be placed 48 hours after most recent blood cultures are negative. Ongoing IV antibiotic therapy for 6 weeks. Will remove Garcia catheter tomorrow, february 22, for trial of voiding. Admission and Anticipated Discharge Date Admission Date: February 20, 2025 Subjective Alert and oriented. Gram-negative bacteremia noted. Urine appears to be unremarkable so this probably came from the GI tract. Infectious disease consultation recommendations appreciated. Vancomycin has been discontinued. Continue Zosyn, day 2. Blood cultures were positive on February 20 and have been repeated today, February 21. PICC line will be placed 48 hours after negative blood cultures and he will continue with intravenous antibiotics for a total of 6 weeks. Cardiac echo is negative for evidence of vegetations. Orthopedic spine consultation noted. The patient lives in the [facility]. Review of Systems 2 Review of Systems: Constitutionalno fever or chills ENTno blurred vision, no double vision, no epistaxis, no sore throat Respiratoryno cough, no wheezing, no shortness of breath Cardiacno palpitations, no chest pain, no syncope Braden nausea, vomiting, diarrhea, melena, hematochezia GUno urinary retention, no urinary incontinence, no dysuria, no hematuria Musculoskeletallow back discomfort has improved since admission. No muscle tenderness Skinno bruising, no rashes, no pruritus Neurono isolated weakness, no paresthesia, no weakness Psychno depression, no anxiety Physical Exam 2 Physical Exam: General-alert and oriented x3, no fever, no chills HEENT-head atraumatic and normocephalic, pupils equal and reactive to light, extraocular muscles intact Neck-no lymphadenopathy or thyromegaly, trachea midline Chest-clear to auscultation. No rales, wheezing or rhonchi Cardiac-regular rate and rhythm, normal S1 and S2. Grade 2/6 harsh systolic murmur Abdomen-normal bowel sounds, no hepatosplenomegaly Extremities-no cyanosis, clubbing, or edema. Mild to moderate lumbar tenderness with palpation Neuro-cranial nerves II through XII intact, motor and sensory function within normal limits, strength symmetrical, no focal deficits Psych-normal affect, normal mood Results & Data Results & Data Vital Signs (Past 12 Hours) Vital Signs Temp Pulse Resp BP Pulse Ox O2 Del Method 02/21/25 07:32 36.4 C L 51 L 16 121/61 93 Room Air Laboratory Results 02/21/25 06:32 02/20/25 12:17 PG Care Time/CCT Total # of Minutes Spent Total Time Spent with Patient: Total time spent is greater than 50% in coordination of care (as documented) at patient's floor/unit and/or counseling patient: Coding Level of Care Code 10521 SUB INP/OBS CARE 3/50MIN Diagnoses Discitis of lumbar region M46.46 E coli bacteremia R78.81; B96.20 BPH (benign prostatic hyperplasia) N40.0 Bladder cancer C67.9 COPD (chronic obstructive pulmonary disease) J44.9
[2025-02-21] MEDS ORDERED: LORazepam 1 MG TAB PO SCH (21:00)
[2025-02-21 21:13] VITALS: RESP 18
[2025-02-22 08:11] LABS: Basophils # (auto) 0.06 K/uL (0.00-0.20); Basophils % (auto) 0.5 %; Eosinophils # (auto) 0.09 K/uL (0.00-0.50); Eosinophils % (auto) 0.8 %; Hemoglobin 11.6 g/dl (14.0-18.0); Immature Granulocytes # (auto) 0.04 K/uL (0.01-0.20); Immature Granulocytes % (auto) 0.3 %; Lymphocytes % (auto) 10.5 %; Mean Corpuscular Hemoglobin 26.5 pg (25.0-34.0); Mean Corpuscular Hgb Conc 30.5 g/dL (32.0-36.0); Mean Platelet Volume 12.4 fL (9.4-12.4); Monocytes # (auto) 1.74 K/uL (0.11-0.59); Monocytes % (auto) 15.2 %; Neutrophils # (auto) 8.34 K/uL (1.40-6.50); Neutrophils % (auto) 72.7 %; Platelet Count 319 K/uL (130-400); RDW Coefficient of Variation 14.7 % (11.5-14.5); RDW Standard Deviation 47.7 fL (36.4-46.3); Red Blood Count 4.37 M/uL (4.70-6.10); White Blood Count 11.47 K/ul (4.8-10.8)
[2025-02-22 08:34] LABS: BUN Creatinine Ratio 20.6 (10-20); Calcium 9.4 mg/dl (8.6-10.3); Creatinine Clr Calc Pharmacy 30.4 ml/min; Potassium 4.4 mmol/L (3.5-5.1)
--- NOTE | 2025-02-22 12:42 | Hospitalist Progress Note ---
Date of Service February 22, 2025 Assessment & Plan (1) Discitis of lumbar region: Plan: L4-5, L5-S1 discitis seen on MRI scanning. Appears to be E. coli based on blood culture results. Infectious disease consultation and recommendations appreciated. Currently on Zosyn, day 3. Zosyn will be switched to a once daily antibiotic based on sensitivities when available. He will require intravenous antibiotics for 6 weeks. PICC line will be placed 48 hours after last negative blood culture. (2) E coli bacteremia: Plan: Continue Zosyn for now, day 3. Infectious disease recommendations appreciated. 02/20 blood cultures are positive. 02/21 blood cultures remain negative to date. TTE negative for signs of vegetations (3) BPH (benign prostatic hyperplasia): Plan: Acute urinary retention when in the ER. Garcia catheter was placed on February 20. Garcia catheter will be removed today, February 22, for trial of voiding (4) Bladder cancer: Plan: By history. No current intervention required (5) COPD (chronic obstructive pulmonary disease): Plan: Stable. Continue current medical management (6) Sepsis: Plan: Present on admission. Now resolved Plan Continue IV antibiotics. PICC line will be placed 48 hours after most recent blood cultures are negative. Ongoing IV antibiotic therapy for 6 weeks. Will remove Garcia catheter today, February 22, for trial of voiding. Anticipate discharge to home tomorrow, February 23 Admission and Anticipated Discharge Date Admission Date: February 20, 2025 Subjective Alert and oriented. No distress. He is extremely anxious to go home. Infectious disease consultation noted. PICC line will be placed when blood cultures remain negative for 48 hours. He is currently on Zosyn but this will be tailored to E. coli sensitivities which are pending. Blood culture obtained on February 21 remains negative to date. TTE was negative for evidence of vegetations. Garcia catheter will be removed today, February 22, with a trial of voiding. Review of Systems 2 Review of Systems: Constitutionalno fever or chills ENTno blurred vision, no double vision, no epistaxis, no sore throat Respiratoryno cough, no wheezing, no shortness of breath Cardiacno palpitations, no chest pain, no syncope Braden nausea, vomiting, diarrhea, melena, hematochezia GUno urinary retention, no urinary incontinence, no dysuria, no hematuria Musculoskeletallow back discomfort has improved since admission. No muscle tenderness Skinno bruising, no rashes, no pruritus Neurono isolated weakness, no paresthesia, no weakness Psychno depression, no anxiety Physical Exam 2 Physical Exam: General-alert and oriented x3, no fever, no chills HEENT-head atraumatic and normocephalic, pupils equal and reactive to light, extraocular muscles intact Neck-no lymphadenopathy or thyromegaly, trachea midline Chest-clear to auscultation. No rales, wheezing or rhonchi Cardiac-regular rate and rhythm, normal S1 and S2. Grade 2/6 harsh systolic murmur Abdomen-normal bowel sounds, no hepatosplenomegaly Extremities-no cyanosis, clubbing, or edema. Mild to moderate lumbar tenderness with palpation Neuro-cranial nerves II through XII intact, motor and sensory function within normal limits, strength symmetrical, no focal deficits Psych-normal affect, normal mood Results & Data Results & Data Vital Signs (Past 12 Hours) Vital Signs Temp Pulse Pulse Resp BP Pulse Ox O2 Del Method 02/22/25 08:58 50 L 02/22/25 08:45 Room Air 02/22/25 07:14 36.8 C 47 L 18 153/65 H 95 Room Air Laboratory Results 02/22/25 07:35 02/22/25 07:35 PG Care Time/CCT Total # of Minutes Spent Total Time Spent with Patient: Total time spent is greater than 50% in coordination of care (as documented) at patient's floor/unit and/or counseling patient: Coding Level of Care Code 02635 SUB INP/OBS CARE 2/35MIN Diagnoses Discitis of lumbar region M46.46 E coli bacteremia R78.81; B96.20 BPH (benign prostatic hyperplasia) N40.0 Bladder cancer C67.9 COPD (chronic obstructive pulmonary disease) J44.9 Sepsis A41.9
[2025-02-23 07:44] VITALS: O2SAT 94
[2025-02-23 08:24] LABS: Basophils # (auto) 0.05 K/uL (0.00-0.20); Basophils % (auto) 0.5 %; Eosinophils # (auto) 0.09 K/uL (0.00-0.50); Eosinophils % (auto) 0.8 %; Hematocrit (blood only) 39.5 % (42.0-52.0); Hemoglobin 12.2 g/dl (14.0-18.0); Immature Granulocytes # (auto) 0.05 K/uL (0.01-0.20); Immature Granulocytes % (auto) 0.5 %; Lymphocytes # (auto) 1.32 K/uL (1.20-3.40); Lymphocytes % (auto) 12.4 %; Mean Corpuscular Hemoglobin 26.9 pg (25.0-34.0); Mean Corpuscular Hgb Conc 30.9 g/dL (32.0-36.0); Mean Platelet Volume 11.8 fL (9.4-12.4); Monocytes # (auto) 1.47 K/uL (0.11-0.59); Monocytes % (auto) 13.8 %; Platelet Count 366 K/uL (130-400); RDW Coefficient of Variation 14.7 % (11.5-14.5); RDW Standard Deviation 47.1 fL (36.4-46.3); Red Blood Count 4.54 M/uL (4.70-6.10); White Blood Count 10.68 K/ul (4.8-10.8)
[2025-02-23 08:38] LABS: BUN Creatinine Ratio 17.6 (10-20); Calcium 9.6 mg/dl (8.6-10.3); Creatinine Clr Calc Pharmacy 30.8 ml/min; Potassium 4.3 mmol/L (3.5-5.1)
--- NOTE | 2025-02-23 09:10 | Infectious Disease Progress Nt ---
Date of Service February 23, 2025 Assessment & Plan (1) Discitis of lumbar region: (2) E coli bacteremia: Plan 84yo M, retired physician, with h/o L4-L5 discectomy (no hardware) x 2 over 10yrs ago, right TKA 2021, afib on eliquis, bladder cancer dx 1999 with recurrence s/p TURBT in 04/2024, s/p BCG completed 06/2024, gets cystoscopies for follow up (last 01/2025), IPMN s/p robotic Whipple 2017, recent right first toe ingrown nail nailbed removal and excision of distal phalanx spur on 02/10/25 at [facility], known aortic insufficiency, CHF, COPD, CKD III who presented on 02/20 with acute onset of lower back pain and chills x 1 day. Has chronic bl SI joint pain and gets injections every 6-8mo (last 1yr ago). Took pred 20mg x 1 prior to arrival. In the ER, he had difficulty urinating and brumfield was placed. On admission, he was afebrile, vss. Initial WBC 17.5, Cr 1.84, AST 356, ALT 172. Trop elevated. PCT 2.28. UA negative. CTAP w/o con with portal HTN, no cirrhosis. CXR negative. R foot MRI with edema and skin thickening, noted about the medial aspect of the distal great toe; within the subjacent bone, there is edema noted as well, however without sufficiently low T1-weighted signal abnormality to suggest osteomyelitis, and would be more compatible with reactive osteitis; no focal fluid collections or abscess. MRI L spine with L4-5 and L5-S1 w features of discitis. He was started on vanc/zosyn. BCx returned with E coli. ID consulted 02/21. Vanc stopped. TTE neg for vegetations, mild AR, mild-mod , mild-mod MR. Repeat BCx ngtd. Per micro, they are running disk test for E coli sensitivities since the MARIA E results were not entirely clear with some question of ESBL, though they think this is less likely. BCID panel did not report ESBL. Results to be available tomorrow. Patient adamant about leaving today. Since labs improving without ESBL treatment, will go ahead and have him go home on CTX with close follow up if abx needs to be changed. # L4-5 and L5-S1 discitis # E coli bacteremia # H/o L5 discectomy (no hardware) # CKD III (Cr 1.9 in 01/2025) # H/o aortic insufficiency # H/o right TKA - f/u blood cx sensitivities - abx changed to CTX 2g IV daily - plan for 6 weeks of IV abx starting 02/21 (end 04/03) - monitor weekly CBC w diff, BMP, LFTs, ESR, CRP - close outpatient follow up Will continue to follow. If questions or concerns, contact via [facility] or Infectious Disease Call Center . Clarisse Ruiz MD [facility], Division of Infectious Diseases [employer]: [phone] Admission and Anticipated Discharge Date Admission Date: February 20, 2025 Subjective This patient recommendation is based on a telemedicine consult request which was completed asynchronously through chart review and information provided by the primary physician. The patient was not seen or examined today. The evaluation is consultative in nature and all patient care and treatment decisions can either be accepted or rejected by the patient's primary hospital-based treating physician using their own independent medical judgment for their patient. Time Spent Reviewing Chart: 31+ minutes WBC improving. Results & Data Vital Signs (Past 12 Hours) Vital Signs Temp Pulse Resp BP Pulse Ox O2 Del Method 02/23/25 07:39 36.3 C L 61 18 162/76 H 94 Room Air Laboratory Results Labs reviewed. 02/20 BCX: E coli 02/21 BCX: ngtd Vanc 02/20-02/21 Zosyn 02/20->CTX 02/23-
[2025-02-23] MEDS: cefTRIAXone SODIUM 2,000 MG/50 ML BAG IV SCH (10:40)
--- NOTE | 2025-02-23 13:04 | Discharge Summary ---
Discharge Summary Date of Service February 23, 2025 Principal Dx & Hospital Course #1 = Principal Diagnosis (1) Discitis of lumbar region: L4-5, L5-S1 discitis seen on MRI scanning. Appears to be E. coli based on blood culture results. Infectious disease consultation and recommendations appreciated. He was treated while hospitalized with intravenous Rocephin. He will be switched to intravenous Rocephin at discharge. He will require intravenous Rocephin for 6 weeks. PICC line will be placed today, February 23, before discharge. Unfortunately the E. coli sensitivities are still pending and antibiotics may need to be adjusted by his PCP if E. coli turns out to be resistant to the Rocephin. (2) E coli bacteremia: Treated with intravenous Zosyn while hospitalized. He will be switched to intravenous Rocephin at discharge for total of 6 weeks for the lumbar discitis. E. coli sensitivities are still pending however and this will need to be checked by his PCP. Infectious disease recommendations appreciated. 02/20 blood cult ures are positive. 02/21 blood cultures remain negative to date. TTE negative for signs of vegetations (3) BPH (benign prostatic hyperplasia): Acute urinary retention when in the ER. Garcia catheter was placed on February 20. Garcia catheter was removed on February 22 and he has been voiding without difficulty since then. (4) Bladder cancer: By history. No current intervention required (5) COPD (chronic obstructive pulmonary disease): Stable. Continue current medical management (6) Sepsis: Present on admission. Now resolved Plan Continue IV antibiotics. PICC line will be placed before discharge today, February 23. Ongoing IV antibiotic therapy for 6 weeks with Rocephin. Admission HPI Per Admitting Provider This is an 84-year-old male with a history of atrial fibrillation on Eliquis, COPD, history of bladder cancer, recent toe surgery less than 2 weeks ago, BPH, hyperlipidemia, GERD, congestive heart failure, CKD stage III, lives in [place], came to [place] for her son's graduation, presented with low back pain. The patient stated that he has had issues with low back pain off-and-on but it got much worse early this morning. He took a dose of 20 mg of prednisone. He went to the graduation and his pain gradually got worse to the point that he called the ambulance to bring him to the emergency room. While in the ER, he was having difficulty urinating and now has a Garcia catheter in place. In the ER, he was noted to have an elevated temperature of 37.9 and an elevated white count of 17,000. He had several imaging done including right toe x-ray, lumbar spine MRI, foot MRI, lumbar spine CT, chest x-ray. Osteomyelitis of the foot was ruled out but the MRI of the back showed discitis. He has been started on vancomycin and Zosyn. The patient tells me that he does not have any pain in his back at this time. Discharge Exam General-alert and oriented x3, no fever, no chills HEENT-head atraumatic and normocephalic, pupils equal and reactive to light, extraocular muscles intact Neck-no lymphadenopathy or thyromegaly, trachea midline Chest-clear to auscultation. No rales, wheezing or rhonchi Cardiac-regular rate and rhythm, normal S1 and S2. Grade 2/6 harsh systolic murmur Abdomen-normal bowel sounds, no hepatosplenomegaly Extremities-no cyanosis, clubbing, or edema. Mild to moderate lumbar tenderness with palpation Neuro-cranial nerves II through XII intact, motor and sensory function within normal limits, strength symmetrical, no focal deficits Psych-normal affect, normal mood Discharge Plan Discharge Items Patient Disposition: Home - Home Health Services Reason For Visit: BACK PAIN Discharge Diagnosis: E. coli bacteremia, lumbar discitis, acute urinary retention, sepsis Condition on Discharge: Good Activity: Resume your previous activity Non-emergency contact: Primary Care Provider Call non-emergency contact if: your symptoms worsen Follow-up/Referrals: Andrea Sharma MD [Primary Care Provider] - Diet: Regular Addtl Attending Provider Instructions: Intravenous Rocephin daily for 6 weeks. Your primary care provider will need to check on E. coli sensitivities to make sure Rocephin is the proper antibiotic. Sensitivities were not available at the time of your discharge. Infectious disease resourcing consultant recommended IV antibiotic for a total of 6 weeks Pending Studies at Discharge: Yes Studies:: E. coli sensitivities Stand-Alone Forms: My [employer], Smoking Cessation Medications and DC Order Prescriptions: New ceftriaxone 2 gram recon soln 2 g IV DAILY Qty: 25 0RF Continued propafenone 150 mg tablet 150 mg PO Q12H tamsulosin 0.4 mg capsule 0.8 mg PO HS pantoprazole 40 mg tablet,delayed release (DR/EC) 40 mg PO DAILYBB bumetanide 1 mg tablet 1 mg PO Q OTHER DAY acetaminophen-codeine 300-60 mg tablet 1 tab PO Q12H PRN (Reason: Pain) lorazepam 1 mg tablet 1 mg PO Q12H PRN (Reason: ANXIETY/INSOMNIA) losartan 100 mg tablet 100 mg PO DAILY finasteride 5 mg tablet 5 mg PO DAILY cholecalciferol (vitamin D3) [Vitamin D3] 25 mcg (1,000 unit) Capsule 25 mcg PO DAILY rosuvastatin 10 mg tablet 10 mg PO DAILY Eliquis 5 mg tablet 5 mg PO BID Jardiance 10 mg tablet 10 mg PO DAILY Discharge Orders: Discharge Order (Routine); Ordered 02/23/25 Ordered By: Dhiraj De Los Santos Admission Data Admit Date/Time: 02/20/25 18:56 Attending Provider: Dhiraj De Los Santos Admit Provider: Corey Bautista Primary Care Provider: Andrea Sharma Other Providers: Corey Bautista; Roberta Tay; Haydee Ritchie; Clarisse Ruiz; Lora Mancia; Shanta Becerra; Evangelina Marin; Samuel Madera Hospital Stay Data Consultations 02/20/25 17:29 ED Decision to Admit Stat 02/21/25 09:30 Consult Infectious Diseases Routine Consult Orthopedic Spine Surgery Routine Diagnostic Imagining Performed 02/20/25 11:36 CT abd pelvis wo con Stat CT lumbar spine wo con Stat 02/20/25 13:35 MRI Foot [MR foot RT w/o con] Stat MRI Lumbar Spine [MR lumbar spine wo/w con] Stat Pending Results Patient Have Any Pending Studies at Discharge: Yes Discharge Instructions Given to Patient (Per Discharging Provider) Intravenous Rocephin daily for 6 weeks. Your primary care provider will need to check on E. coli sensitivities to make sure Rocephin is the proper antibiotic. Sensitivities were not available at the time of your discharge. Infectious disease resourcing consultant recommended IV antibiotic for a total of 6 weeks Total Time Total Time Spent Total Time Spent (In Minutes): 50 minutes Coding Level of Care Code 12238 INP/OBS DISCH >30 MIN Diagnoses Discitis of lumbar region M46.46 E coli bacteremia R78.81; B96.20 BPH (benign prostatic hyperplasia) N40.0 Bladder cancer C67.9 COPD (chronic obstructive pulmonary disease) J44.9 Sepsis A41.9
[2025-02-23 13:22] VITALS: BP 149/70; PULSE 55; TEMP 97.5
--- NOTE | 2025-02-24 12:12 | Coding Query ---
CODING QUERY To promote full compliance with coding requirements relating to patient care, provider participation is requested in all cases of invoice coder uncertainty. Please assist us with the question(s) below: Coding Question(s): Sepsis present on admission is documented on the 02/22 Progress Note and on the Discharge Summary. There is documentation of E. Coli Bacteremia and E. Coli based on blood cultures. Please specify below, in your clinical opinion, the most likely source of the Sepsis: ( ) E. Coli Sepsis most likely due to infectious source of: ( ) Discitis of Lumbar Region ( ) Other: Please Specify ( ) Other: Please Specify Physician's Response(s): not sure what your asking. The E. coli bacteremia most likely caused the discitis, not the other way around. I don't definitely know where the E.coli came from. Most likely from GI tract since urine was negative Thank you Cely Moy Principal Diagnosis: "that condition established after study, to be chiefly responsible for occasioning the admission of the patient to the hospital for care." Co-Existing Principal Diagnosis: "when two or more diagnoses equally meet the criteria for principal diagnosis as determined by the circumstances of admission, diagnostic work up, and/or therapy provided, and the Alphabetic Index, Tabular List, or another coding guideline does not provide sequencing direction, any one of the diagnoses may be sequenced first." "When the physician has documented what appears to be a current diagnosis in the body of the record, but has not included the diagnosis in the final diagnostic statement, the physician should be asked whether the diagnosis should be added." (Source Coding [facility] 2 QTR90. p3-4) EZRA
--- NOTE | 2025-02-24 13:10 | Coding Query ---
CODING QUERY To promote full compliance with coding requirements relating to patient care, provider participation is requested in all cases of mail messenger contractor uncertainty. Please assist us with the question(s) below: Coding Question(s): Thank you for your response on the previous query showing the source of E. coli bacteremia to be most likely from GI tract. You're help is appreciated to clarify regarding documentation of Sepsis present on admission on last Progress Note and Discharge Summary vs documentation of E. coli bacteremia. ( x ) Sepsis with E. Coli in blood ( ) E. Coli Bacteremia with No Sepsis - Sepsis is ruled-out Physician's Response(s): Thank you Cely Moy Principal Diagnosis: "that condition established after study, to be chiefly responsible for occasioning the admission of the patient to the hospital for care." Co-Existing Principal Diagnosis: "when two or more diagnoses equally meet the criteria for principal diagnosis as determined by the circumstances of admission, diagnostic work up, and/or therapy provided, and the Alphabetic Index, Tabular List, or another coding guideline does not provide sequencing direction, any one of the diagnoses may be sequenced first." "When the physician has documented what appears to be a current diagnosis in the body of the record, but has not included the diagnosis in the final diagnostic statement, the physician should be asked whether the diagnosis should be added." (Source Coding [facility] 2 QTR90. p3-4) EZRA
== END 2025-02-23 13:55 | disposition home health service (06) | DRG 551 ==
LOC: ED 10:44 → 3W 18:56 → SUATTDRO 18:56 → 3W 21:19